=== PATIENT | female | born 2000 | race Caucasian/White ===

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

== ENCOUNTER 2021-03-15 20:03 | Emergency (ER) | payer MEDICAID, SELFPAY ==
[2021-03-15 20:08] VITALS: BP 134/81; PULSE 90; RESP 20; TEMP 36.3; O2SAT 100
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
[2021-03-15] MEDS: Dexamethasone 10 MG/ML VIAL PO (20:35)
--- NOTE | 2021-03-15 20:55 | NUR.NOTE ---
Nursing Note: Patient discharged per provider order. No s/sx of resp. distress noted. Resp. even and non-labored upon discharge. Patient denies any difficulty breathing.
--- NOTE | 2021-03-16 15:52 | NUR.NOTE ---
Nursing Note: Patient called asking about a prescription that was sent to the pharmacy for her. I looked at her discharge instructions and it said to take ibuprofen and acetaminophen with no prescription. I read the information to the patient and she understood. Luisa Ortez
== END 2021-03-15 20:45 | disposition home or self-care (01) ==
PROVIDERS: Emergency Provider Physician Assistant
DX: J03.91 Acute recurrent tonsillitis, unspecified (principal)
CPT/HCPCS: 87880; 99283; 87081; 99282; J1100

== ENCOUNTER 2021-03-29 10:25 | Outpatient (REF) | payer MEDICAID, SELFPAY ==
[2021-04-01 16:08] LABS: Chlamydia Result Negative (Negative); GC Result Negative (Negative)
== END 2021-03-29 10:26 | disposition home or self-care (01) ==
LOC: LBN 10:25
PROVIDERS: Visit Provider Nurse Practitioner Family
DX: Z11.3 Encounter for screening for infections with a predominantly sexual mode of transmission (principal)
CPT/HCPCS: 87491; 87591

== ENCOUNTER 2021-05-11 21:35 | Emergency (ER) | payer MEDICAID, SELFPAY ==
[2021-05-11 21:51] VITALS: BP 113/79; PULSE 94; RESP 16; TEMP 36.4; O2SAT 97
--- NOTE | 2021-05-11 22:15 | RT.EKG_ITS ---
APPROVED REPORT Exam: Resting ECG Reason for Exam: chest pain with inspiration Patient Location: E HR:86 bpm ECG Measurements Heart Rate 86 AXIS ME 131 P 14 QRSd 88 QRS 90 QT 352 T 20 QTc 421 Conclusion Sinus rhythm...normal P axis, V-rate 60- 99 Normal Electrocardiogram
--- NOTE | 2021-05-11 22:15 | DI.RAD_ITS ---
Exam(s) XR PORTABLE CHEST AP EXAM: XR PORTABLE CHEST AP CLINICAL HISTORY: Pain with inspiration TECHNIQUE: 2D digital imaging was performed of the chest. One image was obtained. An AP view was ob tained. COMPARISON: CR XR CERVICAL SP HERNANDES TRAUMA 2-3V from 04/30/2019 FINDINGS: MEDIASTINUM: Normal. HEART: Normal. PULMONARY VASCULATURE: Normal. LUNGS: No focal consolidating infiltrate. There is a nodular opacity measuring 1.8 cm projected with in the right 5th and 6th rib interspace. PLEURAL SPACE: No pleural effusion or pneumothorax. BONE:Within normal limits for the patient's age. OTHER FINDINGS:Normal. IMPRESSION: 1. 1.8 cm round opacity projected within the right 5th and 6th rib interspace. This is nonspecific. Pulmonary nodule or focal infiltrate cannot be excluded. 2. A follow-up examination is recommended. A follow-up chest x-ray is recommended for re-evaluation. If the finding persists a CT scan of the chest is recommended. DATA REPOSITORY: RADIATION DOSE DELIVERED:
[2021-05-11 22:46] VITALS: BP 111/71; PULSE 97; TEMP 36.6; O2SAT 99
--- NOTE | 2021-05-11 22:53 | DI.VRAD_ITS ---
PROCEDURE INFORMATION: Exam: XR Chest Exam date and time: 05/11/2021 10:25 PM Age: 20 years old Clinical indication: Other: Pain with inspiration TECHNIQUE: Imaging protocol: XR of the chest. Views: 1 view. COMPARISON: CR XR CERVICAL SP HERNANDES TRAUMA 2-3V 04/30/2019 11:04 AM FINDINGS: Lungs: Lungs are adequately inflated and symmetric. No focal consolidative airspace disease. Within the right upper lobe partially projecting over the posterior right 6th rib there is asymmetric ovoid 1.8 cm nodular opacity. Pleural spaces: No visible pleural effusion. No pneumothorax. Heart/Mediastinum: Cardiomediastinal contours within normal limits. Bones/joints: No acute osseous finding. IMPRESSION: 1. No focal consolidative airspace disease. 2. Asymmetric ovoid 1.8 cm nodular opacity within the right upper lobe of uncertain etiology. Recommend follow-up with nonemergent CT of the chest. Dictated and Authenticated by: Blaine Santiago MD. Ordering:RENATA Conley MD
[2021-05-11 22:56] LABS: Abs Immature Grans 0.08 10^3/uL (0.0-0.06); Absolute Basophil Count 0.06 10^3/uL (0.0-0.2); Absolute Eosinophil Count 0.21 10^3/uL (0.0-0.7); Basophils % 0.5; Eosinophils % 1.7; HCT 41.3 % (36.0-46.0); HGB 14.1 g/dL (11.2-15.7); Immature Grans % 0.7; Lymphocytes % 16.3; MCHC 34.1 % (32.0-36.0); MPV 9.4 fL (8.0-11.0); Monocytes % 6.5; Neutrophils % 74.3; Nucleated RBC 0 %; Platelet Count 277 10^3/uL (130-400); RBC 4.86 10^6/uL (3.93-5.22); RDW 11.2 % (11.7-14.6); RDW-SD 34.5 fL
[2021-05-11 22:57] LABS: Absolute Neutrophil Count 9.14 10^3/uL (1.2-6.7)
[2021-05-11 23:08] LABS: ALT 21 U/L (14-59); AST 14 U/L (15-37); Alkaline Phosphatase 62 U/L (46-116); BUN 14 mg/dL (7-18); Bilirubin, Total 0.9 mg/dL (0.2-1.0); CREATININE 0.8 mg/dL (0.55-1.02); Calcium 9.1 mg/dL (8.5-10.1); Chloride 103 mmol/L (98-107); Glucose 121 mg/dL (74-106); Potassium 3.4 mmol/L (3.5-5.1); Sodium 140 mmol/L (136-145); Total Protein 7.8 g/dL (6.4-8.2)
[2021-05-11 23:12] LABS: Troponin I < 50 ng/L (<or=60)
--- NOTE | 2021-05-11 23:19 | ED.GENADUL_ITS ---
Discharge Plan Disposition Patient Disposition: HOME Condition: Stable Discharge Details Clinical Impression: URI, acute, Pleurisy Primary Care Provider: Cassie Murphy ED Provider: Jarvis Russell Home Meds and New Rx's Prescriptions: New ibuprofen [IBU] 600 mg tablet 600 mg PO QID PRN (Reason: pain) Qty: 20 RF: 0 Continued medroxyprogesterone [Depo-Provera] 150 mg/mL suspension 150 mg IM Q12W Qty: 1 RF: 4 No Action prednisone 10 mg tablet 30 mg PO BID 5 Days Qty: 30 RF: 0 Discharge Instructions Instructions: Pleurisy (ED), Upper Respiratory Infection (ED) Additional Instructions: Given that we are going to send out testing for COVID you should remain home and quarantine until your results are available which is typically in 24 to 48 hours. If you have any new or significant worsening of symptoms please feel free to return to the emergency department for reevaluation. It is important that you stay well-hydrated and get plenty of rest. Please take medication as prescribed. Given the incidental finding on your chest x-ray you should follow-up with your primary care provider preferably next 1 to 2 weeks for reassessment and further imaging as needed. Stand Alone Forms: PENDING COVID-19 TESTING, Work Release Referrals: Cassie Murphy MD [Primary Care Provider] - 1 week (For reassessment of abnormal chest x-ray) Discharge Data Discharge Date/Time-TO BE ENTERED AT DEPARTURE: 05/11/21 23:54 Medical Decision Making Patient report cold-like symptoms for 2 weeks but then some worsening of the last couple days with nasal congestion, fever, cough. She states pain with deep inspiration specifically around the left clavicle. She does state that she has been in contact with positive coworkers who had COVID recently. Physical exam is unremarkable and pain is not reproducible with palpation. Plan to perform labs including plain film imaging of the chest. Patient is Wells negative but PERC positive due to hormone therapy. Plan to do D-dimer. Review of x-ray imaging and radiologist dictation shows no acute findings but incidental finding that was communicated the patient which I do feel she should follow-up with her primary care provider in regards to. Review of labs is reassuring with no emergent findings noted. Negative troponin, negative D-dimer. EKG was reviewed with attending physician and shows no acute signs of STEMI. see MD charting for full interpretation. Patient does report multiple cases of COVID at work so COVID testing sent and patient instructed on quarantine pending these. At this time I feel that patient has vi ral illness with secondary pleurisy. Patient given any NSAID in the emergency department and instructed on NSAID use to help with symptoms. After discussion of diagnosis and plan of care patient has no further needs, questions, or concerns and states clear understanding to return to the emergency department for any worsening symptoms. Imaging Data Radiologic Study: Imaging: X-Ray Radiologist's impression: No focal consolidative airspace disease. Asymmetric ovoid 1.8 cm nodule opacity within the right upper lobe uncertain etiology. Recommend nonemergent CT chest for follow-up. HPI General Mode of arrival: ambulatory . Date/Time Provider Initiated Documentation: 05/11/21 21:52 . Limitations to Documentation: no limitations . Information obtained by: patient . History of Present Illness 20 year old F presents to the emergency department with the chief complaint of Cold symptoms over the last couple days with inspiration chest pain, described as moderate, Quality is described as aching and sharp, and is localized to the chest. P atient reports no radiation. Patient started experiencing this day(s) (1) and it has been constant. No relieving factors improve symptom(s), No exacerbating factors reported . Patient notes fever/chills, headaches and malaise; denies diaphoresis, shortness of breath, syncope and weakness. Patient did receive the following treatments prior to arrival, none Related Data Home Medications Medication Instructions Recorded Confirmed medroxyprogesterone 150 mg/mL 150 mg IM Q12W #1 ml 04/24/20 08/17/20 intramuscular suspension ibuprofen [IBU] 600 mg PO QID PRN #20 tab 05/11/21 prednisone 10 mg tablet 30 mg PO BID 5 Days #30 tab 05/12/21 Previous Rx's Medication Instructions Recorded medroxyprogesterone 150 mg/mL 150 mg IM Q12W #1 ml 04/24/20 intramuscular suspension ibuprofen [IBU] 600 mg PO QID PRN #20 tab 05/11/21 prednisone 10 mg tablet 30 mg PO BID 5 Days #30 tab 05/12/21 Allergies Allergy/AdvReac Type Severity Reaction Status Date / Time No Known Allergies Allergy Verified 03/29/21 08:21 General Stated Complaint: RespSymp JESUS: 3 Review of Systems Constitutional Constitutional: Reports body ache(s), Reports chills, Reports fever(s), Reports headache(s) and Reports malaise Eyes Eyes: Denies eye discharge ENT Ears, Nose, Mouth, and Throat: Reports as per HPI, Denies ear discharge, Denies otalgia, Reports headache(s), Reports nasal congestion, Denies neck pain, Reports sore throat and Denies throat swelling Cardiovascular Cardiovascular: Denies rapid heart rate, Denies lightheadedness and Denies dyspnea Respiratory Respiratory: Reports as per HPI, Reports cough, Reports pain on inspiration, Denies dyspnea and Denies wheezing Musculoskeletal Musculoskeletal: Denies joint swelling and Denies neck pain Integumentary/Breasts Skin/Breast: Denies rash Neurologic Neurologic: Reports headache(s) Allergic/Immunologic Allergic/Immunologic: Denies throat swelling and Denies wheezing PFSH All Active Problems URI, acute (Acute) Pleurisy (Acute) Recurrent tonsillitis (Chronic) Had eval with ENT- no indication for tonsillectomy at this point (10/27/20) Gastroesophageal reflux disease (Chronic) Encounter for Depo-Provera contraception (Acute) Premature (Chronic) Born at 34 weeks PTSD (post-traumatic stress disorder) (Acute 10/04/14) Anxiety (Chronic 10/04/14) Medical History Anxiety BMI 27.0-27.9,adult PTSD (post-traumatic stress disorder) Family History Mother Substance abuse Alcohol abuse Half-sibling Substance abuse Social History Smoking/Tobacco Use Status: Never Second Hand Exposure: No Smoking risk assessment performed?: Yes Alcohol Intake: current Alcohol Intake frequency: a few times a month Alcohol type: hard liquor Drug use: Never Substance use type: does not use Household members: family Pets and animals: Yes Pets and animals: cat(s) and farm animals Current gender identity: female Seatbelt use: always Helmet use: Yes Helmet use: always Water heater temp set <120 deg: Yes Working smoke detector in home: Yes Fire extinguisher in home: Yes Carbon monox detector in home: Yes Firearms in home: Yes Firearms unloaded and locked: Yes Do you feel safe at home: Yes Do you feel safe in your relationship?: Yes Exam Const General: cooperative, healthy appearing, comfortable, no acute distress, not diaphoretic and not ill appearing Nutritional Appearance: average body habitus Orientation: alert, awake and oriented x3 Limitations: mental status not altered HENMT Head: normal to inspection Ears: hearing grossly normal bilaterally, external ears normal and TM's normal bilaterally General nose exam: external nose normal and nares normal Mouth: oral mucosae normal and tongue normal Throat: posterior oropharynx normal and tonsils normal Neck Neck: normal visual inspection, full ROM, trachea midline, supple and no anterior neck swelling Lymphatic: no lymphadenopathy noted Chest Chest: normal inspection of the chest, normal palpation of entire chest wall, no crepitus and no tenderness Resp Effort & Inspection: normal respiratory effort and able to speak in complete sentences Auscultation: clear to auscultation bilaterally Cardio Rate: regular rate Rhythm: regular rhythm Heart Sounds: S1 normal, S2 normal, no click, no gallops, no murmurs and no rubs Bruits: no abdominal aortic bruits and no carotid bruits Pulses: radial pulses present bilaterally 2+ Skin General skin exam: no rashes or lesions noted Neuro General: patient alert, patient awake, patient oriented x3, tone normal and m oves all extremities Course Vital Signs Vital signs: Vital Signs Temperature 36.4 C L 05/11/21 21:51 Pulse 94 H 05/11/21 21:51 Respiratory Rate 16 05/11/21 21:51 Blood Pressure 113/79 05/11/21 21:51 Pulse Oximetry 97 05/11/21 21:51 Temperature 36.6 C 05/11/21 22:46 Temperature Source Temporal Artery Scan 05/11/21 22:46 Pulse 97 H 05/11/21 22:46 Respiratory Rate 16 05/11/21 21:51 Respiratory Effort Non-Labored 05/11/21 21:57 Respiratory Depth Normal 05/11/21 21:57 Blood Pressure 111/71 05/11/21 22:46 Blood Pressure Position Sitting 05/11/21 21:51 Pulse Oximetry 99 05/11/21 22:46 Oxygen Delivery Method Room Air 05/11/21 21:51 Oxygen Flow Rate 0 05/11/21 21:51 Pain Level 8 05/11/21 21:51 Comment 05/11/21 21:51 Lab/Test Results Lab/Test Results: Laboratory Tests Range/Units 05/11/21 05/11/21 05/11/21 22:43 22:43 22:43 WBC (4.4-10.8) 10^3/uL 12.30 H RBC (3.93-5.22) 10^6/uL 4.86 Hgb (11.2-15.7) g/dL 14.1 Hct (36.0-46.0) % 41.3 MCV (80-95) fL 85.0 MCH (27.0-33.0) pg 29.0 MCHC (32.0-36.0) % 34.1 RDW (11.7-14.6) % 11.2 L Plt Count (130-400) 10^3/uL 277 MPV (8.0-11.0) fL 9.4 Immature Gran % 0.7 Neutrophils % 74.3 Lymphocytes % 16.3 Monocytes % 6.5 Eosinophils % 1.7 Basophils % 0.5 Nucleated RBC % % 0 Absolute Neutrophils (1.2-6.7) 10^3/uL 9.14 H Absolute Lymphocytes (1.2-3.4) 10^3/uL 2.00 Absolute Monocytes (0.1-0.8) 10^3/uL 0.80 Absolute Eosinophils (0.0-0.7) 10^3/uL 0.21 Absolute Basophils (0.0-0.2) 10^3/uL 0.06 Sodium (136-145) mmol/L 140 Potassium (3.5-5.1) mmol/L 3.4 L Chloride (98-107) mmol/L 103 Carbon Dioxide (21.0-32.0) mmol/L 25.0 Anion Gap (3-11) mmol/L 12.0 H BUN (7-18) mg/dL 14 Creatinine (0.55-1.02) mg/dL 0.8 Estimated GFR/1.73 m2 (mL/min/1.73m2) >= 60.00 Glucose (74-106) mg/dL 121 H Calcium (8.5-10.1) mg/dL 9.1 Total Bilirubin (0.2-1.0) mg/dL 0.9 AST (15-37) U/L 14 L ALT (14-59) U/L 21 Alkaline Phosphatase (46-116) U/L 62 Troponin I (<or=60) ng/L < 50 Total Protein (6.4-8.2) g/dL 7.8 Albumin (3.4-5.0) g/dL 4.0 PAWSS Have you Been Recently Intoxicated or Drunk Within the Last 30 days?: No Have you Ever Experienced Previous Episodes of Alcohol Withdrawal?: No Have you ever Experienced Withdrawal Seizures?: No Have you ever Experienced Delirium Tremens(DT)s?: No Have you ever undergone Alcohol Rehabilitation Treatment (i.e, inpt ot outpatient treatment programs)?: No Have you ever Experienced Blackouts?: No Have you ever Combined Alcohol with other Downers within the last 90 days?: No Have you ever Combined Alcohol with any other Substance of Abuse during the last 90 days?: No Positive Blood Alcohol level on Presentation? [PCS.BAL]: No Evidence of Increased Autonomic Activity (i.e. HR>120, tremor, sweating, agitation, nausea)?: No Result: 0
[2021-05-11 23:23] LABS: D-Dimer 309 ng/mlFEU (<500)
[2021-05-11] MEDS: Ibuprofen 600 MG TAB PO (23:39)
[2021-05-12 00:06] VITALS: BP 111/71; PULSE 97; RESP 16; TEMP 36.6; O2SAT 99
--- NOTE | 2021-05-13 09:06 | NUR.NOTE ---
pt called for covid results. told results are still pending.Nursing Note:
[2021-05-13 15:26] LABS: COVID-19 RT-PCR UVMMC Result Negative (Negative)
== END 2021-05-11 23:54 | disposition home or self-care (01) ==
PROVIDERS: Emergency Provider Nurse Practitioner Family
DX: J06.9 Acute upper respiratory infection, unspecified (principal); R09.1 Pleurisy; Z20.822 Contact with and (suspected) exposure to COVID-19; R07.1 Chest pain on breathing
CPT/HCPCS: 80053; 93005; 99283; 99284; U0003; 71045; 84484; 85025; 85379; 93010

== ENCOUNTER 2021-05-28 02:01 | Outpatient (CLI) | payer MEDICAID, SELFPAY ==
--- NOTE | 2021-05-28 08:07 | DI.RAD_ITS ---
Exam(s) XR CHEST 2V PA LATERAL EXAM: XR CHEST 2V PA LATERAL CLINICAL HISTORY: 20yF with incidental nodule on CXR in ED,f/u cxr. TECHNIQUE: 2D digital imaging was performed. COMPARISON: CR,XR XR PORTABLE CHEST AP from 05/11/2021 FINDINGS: Heart size is normal. The mediastinum is not widened. The previously described nodular infiltrate in the right upper lobe is significantly less dense on th e present study and appears to have mostly resolved, indicating that was probably of infectious origi n. No other infiltrates evident. No pleural effusions. IMPRESSION: Decrease in size-appearance of the previously described nodular infiltrate in the right upper lobe. This is not completely resolved. Recommend repeat chest x-ray in 2 weeks, earlier if clinically ross cated. DATA REPOSITORY: RADIATION DOSE DELIVERED:
== END 2021-05-28 02:21 ==
DX: R91.8 Other nonspecific abnormal finding of lung field (principal); R93.89 Abnormal findings on diagnostic imaging of other specified body structures
CPT/HCPCS: 71046

== ENCOUNTER 2021-07-19 02:01 | Outpatient (CLI) | payer MEDICAID, SELFPAY ==
--- NOTE | 2021-07-19 07:00 | DI.RAD_ITS ---
Exam(s) XR CHEST 2V PA LATERAL EXAM: XR CHEST 2V PA LATERAL CLINICAL HISTORY: ? Resolution of RUL infiltrate,R93.89 TECHNIQUE: 2D digital imaging was performed. COMPARISON: CR,XR XR PORTABLE CHEST AP from 05/11/2021 CR XR CHEST 2V PA LATERAL from 05/28/2021 FINDINGS: MEDIASTINUM: Normal. HEART: Normal. PULMONARY VASCULATURE: Normal. LUNGS: Clear. Previously noted nodule debt nodular density right upper lobe has resolved. No new fi ndings. PLEURAL SPACE: No pleural effusion or pneumothorax. BONE:Unremarkable for age. IMPRESSION: Resolution of previously noted right upper lobe infiltrate. No new abnormalities. DATA REPOSITORY: RADIATION DOSE DELIVERED:
== END 2021-07-19 02:21 ==
DX: R93.89 Abnormal findings on diagnostic imaging of other specified body structures (principal)
CPT/HCPCS: 71046

== ENCOUNTER 2022-02-07 19:16 | Emergency (ER) | payer MEDICAID, SELFPAY ==
[2022-02-07 19:25] VITALS: BP 113/68; PULSE 92; RESP 18; TEMP 36.7; O2SAT 98
--- NOTE | 2022-02-07 19:30 | RT.EKG_ITS ---
APPROVED REPORT Exam: Resting ECG Reason for Exam: Chest Pain Patient Location: E HR:86 bpm ECG Measurements Heart Rate 86 AXIS MD 136 P 11 QRSd 85 QRS 84 QT 361 T 1 QTc 433 Conclusion Sinus rhythm...normal P axis, V-rate 60- 99
[2022-02-07] MEDS: Normal Saline 500 ML IV (20:33)
[2022-02-07] MEDS: Ketorolac 15 MG/ML VIAL IVP (20:33)
[2022-02-07 20:36] LABS: Abs Immature Grans 0.03 10^3/uL (0.0-0.06); Absolute Basophil Count 0.06 10^3/uL (0.0-0.2); Absolute Eosinophil Count 0.11 10^3/uL (0.0-0.7); Absolute Lymphocyte Count 2.91 10^3/uL (1.2-3.4); Absolute Monocyte Count 0.59 10^3/uL (0.1-0.8); Absolute Neutrophil Count 5.76 10^3/uL (1.2-6.7); Basophils % 0.6; Eosinophils % 1.2; HGB 14.7 g/dL (11.2-15.7); Immature Grans % 0.3; Lymphocytes % 30.8; MCH 29.2 pg (27.0-33.0); MCHC 34.2 % (32.0-36.0); MCV 85 fL (80-95); MPV 9.4 fL (8.0-11.0); Monocytes % 6.2; Neutrophils % 60.9; Platelet Count 271 10^3/uL (130-400); RBC 5.04 10^6/uL (3.93-5.22); RDW 11.9 % (11.7-14.6); RDW-SD 36.6 fL; WBC 9.46 10^3/uL (4.4-10.8)
--- NOTE | 2022-02-07 20:36 | W.ED.GENAD ---
Discharge Plan Disposition Patient Disposition: HOME Condition: Good Discharge Details Clinical Impression: Precordial catch syndrome Primary Care Provider: Unknown,Unknown ED Provider: Howard Amaro Home Meds and New Rx's Prescriptions: No Action medroxyprogesterone [Depo-Provera] 150 mg/mL suspension 150 mg IM Q12W Qty: 1 4RF ibuprofen [IBU] 600 mg tablet 600 mg PO QID PRN (Reason: pain) Qty: 20 0RF Discharge Instructions Instructions: Chest Pain (ED) Additional Instructions: At this time your symptoms do not show any signs of heart attack or blood clot. There is no evidence of popped lung or fluid around your heart on the ultrasound. Please take Tylenol and Motrin, stay well-hydrated, and monitor your symptoms closely. If you notice any worsening of your symptoms, or any new symptoms such as vomiting, diarrhea, fever, chills, shortness of breath, chest pain, numbness, weakness, or fainting , please return immediately to the emergency department for reevaluation. Please follow up with your primary care provider as soon as possible for reassessment and reevaluation. As always, it was a pleasure participating in your medical care today. Stand Alone Forms: Work Release Referrals: Darlyn Cannon [NURSE PRACTITIONER] - Medical Decision Making 21-year-old female with no significant past medical history who was adopted, who does take medroxyprogesterone for control presents today for chest pain. Patient states that over the last 6 to 7 months she has had intermittent sudden stabbing type pain that occurs in her left chest. It would only last 3 to 5 minutes. It seems to come on more frequently with activity, but it is not worsened with exertion when it is happening. She states it does take her breath away. She does not smoke. She does not vape. She denies any arm neck or shoulder or jaw pain when this occurs. Immediately after it resolves she has no pain or no prolonged symptoms whatsoever. Denies PE risk factors such as recent long car rides, immobilization, recent surgery, prior history of DVT or PE, family history of PE or DVT, morbid obesity, and smoking, hemoptysis, history of cancer. She has no other complaints at this time. No cough, fever, chills, vomiting, diarrhea. Exam demonstrates well-appearing female, lungs are clear, vitals are stable. No evidence of abnormality on physical exam. Differential is highest for precordial catch syndrome, however pleurisy, and PE are less likely but on the differential. Musculoskeletal component also potential etiology. We will evaluate for these. EKG was interpreted by Dr. Morris, and on both his review and my own there is no evidence of STEMI or significant abnormality. Small Q waves are noted in lead III. However there is no evidence of S1Q3T3 otherwise. 10:40 PM Patient's laboratory work-up has returned and is unremarkable. D-dimer normal, troponin normal, lipase normal. Bedside ultrasound was performed, there is good lung sliding, no pericardial effusion. No evidence of wall motion abnormality noted on limited ultrasound. Patient feels well and she remains pain-free. Symptoms inconsistent with dissection or PE. Symptoms inconsistent with ACS. Chief diagnosis is for precordial catch syndrome or mild pleurisy. Patient stable for discharge with close follow-up. Recommend NSAIDs at home if needed, hydration, and close follow-up. I have extensively reviewed the treatment plan and discharge instructions with the patient and their family. I have addressed all patient concerns at this time. The patient and family was made aware of what symptoms to monitor for that would warrant a return to the emergency department. Discussed the plan with the patient and family, they demonstrate verbal understanding and agreement with our assessment and plan at this time. The documentation in this chart was dictated using [employer] dictation software. Please excuse any dictation errors. HPI General Date/Time Provider Initiated Documentation: 02/07/22 19:48. HPI Narrative: 21-year-old female with no significant past medical history who was adopted, who does take medroxyprogesterone for control presents today for chest pain. Patient states that over the last 6 to 7 months she has had intermittent sudden stabbing type pain that occurs in her left chest. It would only last 3 to 5 minutes. It seems to come on more frequently with activity, but it is not worsened with exertion when it is happening. She states it does take her breath away. She does not smoke. She does not vape. She denies any arm neck or shoulder or jaw pain when this occurs. Immediately after it resolves she has no pain or no prolonged symptoms whatsoever. Denies PE risk factors such as recent long car rides, immobilization, recent surgery, prior history of DVT or PE, family history of PE or DVT, morbid obesity, and smoking, hemoptysis, history of cancer. She has no other complaints at this time. No cough, fever, chills, vomiting, diarrhea. Related Data Home Medications Medication Instructions Recorded Confirmed ibuprofen 600 mg tablet (IBU) 600 mg PO QID PRN pain #20 tabs 05/11/21 02/07/22 medroxyprogesterone 150 mg/mL 150 mg IM Q12W #1 mL 12/17/21 02/07/22 intramuscular suspension (Depo-Provera) Previous Rx's Medication Instructions Recorded ibuprofen 600 mg tablet (IBU) 600 mg PO QID PRN pain #20 tabs 05/11/21 medroxyprogesterone 150 mg/mL 150 mg IM Q12W #1 mL 12/17/21 intramuscular suspension (Depo-Provera) Allergies Allergy/AdvReac Type Severity Reaction Status Date / Time No Known Allergies Allergy Verified 02/07/22 19:30 General Stated Complaint: Chest/Rib JESUS: 3 Review of Systems All systems reviewed & are unremarkable except as noted in HPI and below PFSH All Active Problems (Updated 02/07/22 @ 22:00 by Howard Amaro DO) Precordial catch syndrome (Acute) Insomnia (Chronic) Heel pain (Chronic) Anxiety (Chronic) Gastroesophageal reflux disease (Chronic) Medical History Abnormal chest xray nodule resolved BMI 27.0-27.9,adult Fracture of distal phalanx of left thumb (01/10/19) 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 PTSD (post-traumatic stress disorder) Recurrent tonsillitis Had eval with ENT- no indication for tonsillectomy at this point (10/27/20) Family History Mother Substance abuse Alcohol abuse Half-sibling Substance abuse Social History Smoking/Tobacco Use Status: Never Second Hand Exposure: No Smoking risk assessment performed?: Yes Alcohol Intake: current Alcohol Intake frequency: a few times a month Alcohol type: hard liquor Drug use: Never Substance use type: does not use Household members: family Pets and animals: Yes Pets and animals: cat(s) and farm animals Current gender identity: female Seatbelt use: always Helmet use: Yes Helmet use: always Water heater temp set <120 deg: Yes Working smoke detector in home: Yes Fire extinguisher in home: Yes Carbon monox detector in home: Yes Firearms in home: Yes Firearms unloaded and locked: Yes Do you feel safe at home: Yes Do you feel safe in your relationship?: Yes Exam Narrative Exam Narrative: 1.Const: Well-nourished, Well-developed, appearing stated age 2.Eyes: PERRL, no conjunctival injection, and symmetrical lids. 3.ENT: Atraumatic external nose and ears. Moist MM. Neck: Symmetric, trachea midline, No thyromegaly. 4.CVS: +S1/S2, No murmurs or gallops. Peripheral pulses 2+ and equal in all extremities. Brisk capillary refill in all extremities. 5.RESP: Unlabored respiratory effort. Clear to auscultation bilaterally. No wheezes rales or rhonchi 6.GI: Soft, Nontender/Nondistended, No hepatosplenomegaly. No guarding or rebound. 7.MSK: Normocephalic/Atraumatic, Extremities w/o deformity or ttp No cyanosis or clubbing, Normal movement of all extremities, no calf tenderness 8.Skin: Warm, Dry. No rashes or lesions. 9.Neuro: perch mender II-XII grossly intact. Sensation grossly intact, no focal neurologic deficits. 10.Psych: (AAO) x3. Appropriate mood and affect Course Vital Signs Vital signs: Vital Signs Temperature 36.7 C 02/07/22 19:25 Pulse 92 H 02/07/22 19:25 Respiratory Rate 18 02/07/22 19:25 Blood Pressure 113/68 02/07/22 19:25 Pulse Oximetry 98 02/07/22 19:25 Temperature 36.7 C 02/07/22 19:25 Pulse 92 H 02/07/22 19:25 Respiratory Rate 18 02/07/22 19:25 Respiratory Effort Non-Labored 02/07/22 19:28 Respiratory Depth Normal 02/07/22 19:28 Respiratory Pattern Normal 02/07/22 19:28 Blood Pressure 113/68 02/07/22 19:25 Blood Pressure Position Sitting 10/20/22 19:25 Pulse Oximetry 98 02/07/22 19:25 Oxygen Delivery Method Room Air 02/07/22 19:25 Oxygen Flow Rate 0 02/07/22 19:25 Pain Level 0 02/07/22 19:28 Lab/Test Results Lab/Test Results: POC- Test(urine) Negative POCUS Exam (ED) Limited Cardiac Exam DATE OF EXAM: 02/07/22 TIME OF EXAM: 22:44 PROVIDER THAT PERFORMED THE STUDY: Howard Amaro IS THIS A REPEAT EXAM DURING THIS ENCOUNTER: no REASON FOR EXAM: Chest pain VISUALIZED STRUCTURES: Left atrium, Left ventricle, Right ventricle and Interventricular septum VIEW OBTAINED: Parasternal long-axis PERTINENT FINDINGS/IMPRESSION: No apparent abnormalities; no IVC inspiratory collapsability, No LV dysfunction, No pericardial effusion, No plethoric IVC, No RV dilation and No RV dysfunction Exam complete
[2022-02-07 20:55] LABS: ALT 29 U/L (14-59); AST 15 U/L (15-37); Albumin 4.6 g/dL (3.4-5.0); Alkaline Phosphatase 54 U/L (46-116); Anion Gap 12.5 mmol/L (3-11); BUN 13 mg/dL (7-18); Bilirubin, Total 1.2 mg/dL (0.2-1.0); CO2 25.5 mmol/L (21.0-32.0); Calcium 9.5 mg/dL (8.5-10.1); Chloride 105 mmol/L (98-107); Estimated GFR 82.71 (mL/min/1.73m2); Glucose 98 mg/dL (74-106); Lipase 78 U/L (73-393); Potassium 3.7 mmol/L (3.5-5.1); Sodium 143 mmol/L (136-145); Total Protein 8.4 g/dL (6.4-8.2); Troponin I < 50 ng/L (<or=60)
[2022-02-07 21:13] LABS: D-Dimer 133 ng/mlFEU (<500)
== END 2022-02-07 22:10 | disposition home or self-care (01) ==
PROVIDERS: Emergency Provider Student in an Organized Health Care Education/Training Program
DX: R07.2 Precordial pain (principal)
CPT/HCPCS: 80053; 81025; 83690; 93005; 93308; 96361; 96374; 99284; 84484; 85025; 85379; 93010; J1885

== ENCOUNTER 2022-04-08 20:07 | Emergency (ER) | payer MEDICAID, SELFPAY ==
[2022-04-08 20:13] VITALS: BP 111/76; PULSE 96; RESP 16; TEMP 36.8; O2SAT 99
[2022-04-08 20:33] LABS: Bilirubin Negative (Negative); Blood Large (Negative); Clarity Cloudy (Clear); Glucose Negative (Negative); Ketones Negative (Negative); Leukocyte Esterase Small (Negative); Nitrite Negative (Negative); Specific Gravity >= 1.030 (1.005-1.025); Urobilinogen 0.2 EU/dL (Up TO 0.2)
[2022-04-08 20:44] LABS: Bacteria Few HPF (Negative); C & S Indicated? Yes; Casts Negative LPF (Negative); Crystals Negative HPF (Negative); Epithelial Cells Few HPF (Negative); Mucus Negative (Negative); RBC 20-50 HPF (0-2)
--- NOTE | 2022-04-08 20:46 | W.ED.GENAD ---
Discharge Plan Disposition Patient Disposition: Home Condition: Stable Discharge Details Clinical Impression: UTI (urinary tract infection) Primary Care Provider: Darlyn Cannon ED Provider: Kelvin Munoz Home Meds and New Rx's Prescriptions: New sulfamethoxazole-trimethoprim [Bactrim DS] 800-160 mg tablet 1 tab PO BID Qty: 14 0RF Continued medroxyprogesterone [Depo-Provera] 150 mg/mL suspension 150 mg IM Q12W Qty: 1 4RF ibuprofen [IBU] 600 mg tablet 600 mg PO QID PRN (Reason: pain) Qty: 20 0RF Discharge Instructions Instructions: Urinary Tract Infection in Women (ED) Additional Instructions: Bactrim as directed. Plenty of fluids to avoid dehydration. Qboh-sva-flnwrsu Azo as directed for symptomatic control. Please watch for new or worsening symptoms and return to the ER for any concerns. Lastly, please follow-up with your PCP in the next 3-5 days if symptoms not improving Medical Decision Making 21-year-old female presents for concern of UTI like symptoms over the past couple of hours. Clinically she appears well, nontoxic. No risk of STD. Plan to obtain urinalysis and negative urinalysis reveals large blood, negative nitrate. Small leuk esterase, 20-50 red cells 10-20 white cells, culture indicated. Will treat with Bactrim and Pyridium. Standard discharge and return precautions were provided. Patient understands, is agreeable to this plan, and has no additional questions or concerns upon discharge. This documentation was generated using [employer] dictation system, please disregard any oddities of phrase or misspellings. Medical Records Medical records reviewed: Yes I reviewed the patient's medical records. Lab Data Lab results reviewed: Yes I reviewed the patient's lab results. Labs: 04/08/22 20:28 Urine - Reflex from Ua Urine Culture - Pending Laboratory Tests Range/Units 04/08/22 20:28 Urine Color (Yellow) Yellow Urine Clarity (Clear) Cloudy Urine pH (5-8) 6.0 Ur Specific [place] (1.005-1.025) >= 1.030 H Urine Protein (Negative) mg/dL 30 H Urine Ketones (Negative) mg/dL Negative Urine Blood (Negative) Large H Urine Nitrite (Negative) Negative Urine Bilirubin (Negative) Negative Urine Urobilinogen (Up TO 0.2) EU/dL 0.2 Ur Leukocyte Esterase (Negative) Small H Urine RBC (0-2) HPF 20-50 H Urine WBC (0-5) HPF 10-20 H Ur Epithelial Cells (Negative) HPF Few Urine Crystals (Negative) HPF Negative Urine Bacteria (Negative) HPF Few Urine Casts (Negative) LPF Negative Urine Mucus (Negative) Negative Ur Culture Indicated? Yes Urine Glucose (Negative) mg/dL Negative HPI General Mode of arrival: ambulatory. Date/Time Provider Initiated Documentation: 04/08/22 20:18. Limitations to Documentation: no limitations. Information obtained by: patient. HPI Narrative: 21-year-old female presents with 3-hour history of UTI-like symptoms, dysuria, hematuria, urinary frequency. Reports she had a UTI in the past and this feels similarly. Denies fever, abdominal pain, nausea vomiting or back pain, vaginal bleeding or discharge. No risk for STD. Related Data Home Medications Medication Instructions Recorded Confirmed ibuprofen 600 mg tablet (IBU) 600 mg PO QID PRN pain #20 tabs 05/11/21 03/04/22 medroxyprogesterone 150 mg/mL 150 mg IM Q12W #1 mL 12/17/21 03/04/22 intramuscular suspension (Depo-Provera) sulfamethoxazole 800 1 tab PO BID #14 tabs 04/08/22 mg-trimethoprim 160 mg tablet (Bactrim DS) Previous Rx's Medication Instructions Recorded ibuprofen 600 mg tablet (IBU) 600 mg PO QID PRN pain #20 tabs 05/11/21 medroxyprogesterone 150 mg/mL 150 mg IM Q12W #1 mL 12/17/21 intramuscular suspension (Depo-Provera) sulfamethoxazole 800 1 tab PO BID #14 tabs 04/08/22 mg-trimethoprim 160 mg tablet (Bactrim DS) Allergies Allergy/AdvReac Type Severity Reaction Status Date / Time No Known Allergies Allergy Verified 03/04/22 10:51 General Stated Complaint: Urinary JESUS: 4 Review of Systems Constitutional Constitutional: Denies fever(s) Gastrointestinal Gastrointestinal: Denies abdominal pain, Denies nausea and Denies vomiting Genitourinary Genitourinary: Denies abnormal vaginal bleeding, Reports hematuria, Reports dysuria and Denies vaginal discharge Musculoskeletal Musculoskeletal: Denies back pain Integumentary/Breasts Skin/Breast: Denies rash PFSH All Active Problems UTI (urinary tract infection) (Acute) Insomnia (Chronic) Heel pain (Chronic) Anxiety (Chronic) Gastroesophageal reflux disease (Chronic) Medical History Abnormal chest xray nodule resolved BMI 27.0-27.9,adult Fracture of distal phalanx of left thumb (01/10/19) 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 PTSD (post-traumatic stress disorder) Recurrent tonsillitis Had eval with ENT- no indication for tonsillectomy at this point (10/27/20) Family History Mother Substance abuse Alcohol abuse Half-sibling Substance abuse Social History Smoking/Tobacco Use Status: Never Second Hand Exposure: No Smoking risk assessment performed?: Yes Alcohol Intake: current Alcohol Intake frequency: a few times a month Alcohol type: hard liquor Drug use: Never Substance use type: does not use Household members: family Pets and animals: Yes Pets and animals: cat(s) and farm animals Current gender identity: female Seatbelt use: always Helmet use: Yes Helmet use: always Water heater temp set <120 deg: Yes Working smoke detector in home: Yes Fire extinguisher in home: Yes Carbon monox detector in home: Yes Firearms in home: Yes Firearms unloaded and locked: Yes Do you feel safe at home: Yes Do you feel safe in your relationship?: Yes Exam Const General: cooperative, healthy appearing, comfortable and no acute distress Orientation: alert and awake [facility] Head: normal to inspection, normocephalic and atraumatic Eyes Conjunctivae: conjunctivae normal Neck Neck: normal visual inspection, full ROM, trachea midline and supple Resp Effort & Inspection: normal respiratory effort and able to speak in complete sentences Auscultation: clear to auscultation bilaterally Cardio Rate: regular rate Rhythm: regular rhythm GI Palpation: soft, not firm, no guarding and nontender Back/Spine/Pelvis Back: no CVA tenderness and No back tenderness Skin General skin exam: no rashes or lesions noted Neuro General: patient alert, patient awake, moves all extremities and no focal motor deficits Cognition: normal cognition Speech: speech normal Gait: normal gait Sensory Exam: no sensory deficits noted Psych Appearance: grossly normal Mental Status: mental status grossly normal Course Vital Signs Vital signs: Vital Signs Temperature 36.8 C 04/08/22 20:13 Pulse 96 H 04/08/22 20:13 Respiratory Rate 16 04/08/22 20:13 Blood Pressure 111/76 04/08/22 20:13 Pulse Oximetry 99 04/08/22 20:13 Temperature 36.8 C 04/08/22 20:13 Temperature Source Oral 04/08/22 20:13 Pulse 96 H 04/08/22 20:13 Respiratory Rate 16 04/08/22 20:13 Respiratory Effort 04/08/22 20:16 Blood Pressure 111/76 04/08/22 20:13 Blood Pressure Position Sitting 04/08/22 20:13 Pulse Oximetry 99 04/08/22 20:13 Oxygen Delivery Method Room Air 04/08/22 20:13 Oxygen Flow Rate 0 04/08/22 20:13 Pain Level 7 04/08/22 20:13 Lab/Test Results Lab/Test Results: 04/08/22 20:28 Urine - Reflex from Ua Urine Culture - Pending Laboratory Tests Range/Units 04/08/22 20:28 Urine Color (Yellow) Yellow Urine Clarity (Clear) Cloudy Urine pH (5-8) 6.0 Ur Specific [place] (1.005-1.025) >= 1.030 H Urine Protein (Negative) mg/dL 30 H Urine Ketones (Negative) mg/dL Negative Urine Blood (Negative) Large H Urine Nitrite (Negative) Negative Urine Bilirubin (Negative) Negative Urine Urobilinogen (Up TO 0.2) EU/dL 0.2 Ur Leukocyte Esterase (Negative) Small H Urine RBC (0-2) HPF 20-50 H Urine WBC (0-5) HPF 10-20 H Ur Epithelial Cells (Negative) HPF Few Urine Crystals (Negative) HPF Negative Urine Bacteria (Negative) HPF Few Urine Casts (Negative) LPF Negative Urine Mucus (Negative) Negative Ur Culture Indicated? Yes Urine Glucose (Negative) mg/dL Negative POC- Test(urine) Negative
== END 2022-04-08 20:59 | disposition home or self-care (01) ==
PROVIDERS: Emergency Provider Physician Assistant; PCP Nurse Practitioner Family
DX: N39.0 Urinary tract infection, site not specified (principal); B96.20 Unspecified Escherichia coli [E. coli] as the cause of diseases classified elsewhere
CPT/HCPCS: 81025; 87077; 99283; 81003; 81015; 87086; 87186

== ENCOUNTER 2022-05-18 17:08 | Outpatient (REF) | payer MEDICAID, SELFPAY ==
[2022-05-20 13:22] LABS: COVID-19 RT-PCR UVMMC Result Negative (Negative)
== END 2022-05-18 17:09 | disposition home or self-care (01) ==
LOC: LBN 17:08
PROVIDERS: PCP Nurse Practitioner Family; Visit Provider Physician Assistant Medical
DX: Z20.822 Contact with and (suspected) exposure to COVID-19 (principal); J02.9 Acute pharyngitis, unspecified
CPT/HCPCS: U0003; 87081

== ENCOUNTER 2022-05-23 12:48 | Outpatient (CLI) | payer MEDICAID, SELFPAY | END 2022-05-23 12:49 | disposition home or self-care (01) | LOC: CARDOPNVT 12:48 | PROVIDERS: PCP Nurse Practitioner Family; Visit Provider Family Medicine | DX: R07.9 Chest pain, unspecified (principal) | CPT/HCPCS: 93246 ==

== ENCOUNTER 2022-06-20 09:58 | Outpatient (CLI) | payer MEDICAID, SELFPAY ==
--- NOTE | 2022-06-21 09:18 | CER_ITS ---
Date of service: 06/21/22 Time of Service: 09:18 Cardiac Event Recorder Referring Provider:: Jerod Lopez Indications:: Chest pain Cardiac Event Note: This is a 14-day compliance monitor reportedly ordered for chest pain Rhythm throughout was sinus with an average heart rate of 89. Minimum was 50, maximum 180 There were no ventricular dysrhythmias A total of 7 isolated atrial premature beats were seen There was no atrial fibrillation, no SVT, no high-grade block, no pauses greater than 3 seconds No patient symptoms were reported
== END 2022-06-20 09:59 | disposition home or self-care (01) ==
LOC: CARDOPNVT 09:58
PROVIDERS: PCP Nurse Practitioner Family; Visit Provider Internal Medicine Cardiovascular Disease
DX: R07.9 Chest pain, unspecified (principal)

== ENCOUNTER 2022-10-28 09:02 | Day surgery (SDC) | payer MEDICAID, SELFPAY ==
[2022-10-28] VITALS (9 sets, daily range): BP systolic 101–122; BP diastolic 60–83; PULSE 74–95; RESP 16–22; TEMP 36.3–36.8; O2SAT 98–100; BMI 30.4
[2022-10-28] MEDS: Lactated Ringers 1,000 ML 80 ML IV (09:50)
--- NOTE | 2022-10-28 09:59 | ANES.PREOP_ITS ---
General Info Date of Service Date Performed: 10/28/22 Height: 5 ft 1 in Weight: 73 kg Body Mass Index (BMI): 30.4 Surgical Procedure: Operation Date: 10/28/22 11:10 Proposed Procedure Side Surgeon p Tonsillectomy & Possible Adenoidectomy Bilateral Michael Cuellar MD Meds Allergies and Home Medications Allergies Allergy/AdvReac Type Severity Reaction Status Date / Time No Known Allergies Allergy Verified 10/28/22 09:38 Home Medication Medication Instructions Recorded ibuprofen 600 mg tablet (IBU) 600 mg PO QID PRN pain #20 tabs 05/11/21 medroxyprogesterone 150 mg/mL 150 mg IM Q12W #1 mL 08/15/22 intramuscular suspension (Depo-Provera) Current Visit Medications: Current Medications Generic Name Dose Route Start Last Admin Trade Name Freq PRN Reason Stop Dose Admin Ringer's Solution 1,000 mls @ 80 mls/hr 10/28/22 06:00 10/28/22 09:50 IV 11/24/22 23:59 80 mls/hr INFUSION IZABEL Administration Cefazolin Sodium/Dextrose 2 gm in 50 mls @ 100 mls/hr 10/28/22 06:00 Ancef Duplex IVPB 11/24/22 23:59 PREOP IZABEL Tranexamic Acid 1,000 mg/ 60 mls @ 360 mls/hr 10/28/22 06:00 Sodium Chloride IVPB 10/28/22 18:00 PREOP IZABEL IV Miscellaneous Supplies 1 each 10/28/22 06:00 Iv Access IV 11/24/22 23:59 DIRECTED IZABEL Sodium Chloride 0 ml 10/28/22 06:00 Normal Saline Flush 10 Ml Syr IV 11/24/22 23:59 PRN PRN Sodium Chloride 0 ml 10/28/22 06:00 Normal Saline 10 Ml Vial IJ 11/24/22 23:59 DIRECTED PRN Sterile Water 0 ml 10/28/22 06:00 Water,Injection,Sterile 10 Ml Vial IJ 11/24/22 23:59 DIRECTED PRN PFSH Active Problems Active Problems: Problem Status Onset Code Anxiety Gastroesophageal reflux disease K21.9 Heel pain M79.673 Insomnia G47.00 Chronic tonsillitis J35.01 Medical History Medical History Abnormal chest xray nodule resolved BMI 27.0-27.9,adult Fracture of distal phalanx of left thumb (01/10/19) 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 states nothing is a trigger at this time Recurrent tonsillitis Had eval with ENT- no indication for tonsillectomy at this point (10/27/20) Tobacco Smoking/Tobacco Use Status: Never Second hand exposure: No Alcohol Alcohol Intake: current Alcohol intake frequency: a few times a month Alcohol ty pe: hard liquor Substance Use Substance use: Never Substance use type: does not use Vital Signs and Lab Results Vital Signs Most Recent Vital Signs in EMR: Most Recent Vital Signs Temp Pulse Resp BP Pulse Ox 36.8 C 91 H 18 120/79 98 10/28/22 09:39 10/28/22 09:39 10/28/22 09:39 10/28/22 09:39 10/28/22 09:39 Point of Care Results Point of Care Results: POC- Test(urine) Negative 10/28/22 09:46 Lab Results Blood Type / Crossmatch: No Data to Display Complete Blood Count: No Data to Display Complete Metabolic Panel: No Data to Display Liver Function Panel: No Data to Display Coagulation Panel: No Data to Display Cardiac Panel: No Data to Display Arterial Blood Gas: No Data to Display Venous Blood Gas: No Data to Display Pancreas Panel: No Data to Display Thyroid Panel: No Data to Display Infectious Disease: No Data to Display Blood Cultures: No Data to Display Toxicology Panel: No Data to Display Panel: No Data to Display Imaging and Studies Imaging and Studies Study information below may be from another EMR and interpreted by another provider. Please see original notes in EMR for more complete details. EKG Summary: EKG PATIENT NAME: Kayla Hanna #: [id number] ORDERING PROVIDER: Ryan Virk M.D. PRIMARY CARE PROVIDER:UNKNOWN,UNKNOWN DATE/TIME OF SERVICE: 02/07/221939 : 2001PERFORMING LOCATION: ER APPROVED REPORT Exam: Resting ECG Reason for Exam: Chest Pain Patient Location: E HR:86 bpm ECG Measurements Heart Rate 86 AXIS GA 136 P 11 QRSd 85 QRS 84 QT 361 T1 QTc 433 Conclusion Sinus rhythm...normal P axis, V-rate 60- 99 <Electronically signed by RYAN VIRK MD in [place]> E-Sign Date: 02/07/22 E-Sign Time: 1942 ADDENDUM APPROVED REPORT Exam: Resting ECG Reason for Exam: Chest Pain Patient Location: E HR:86 bpm ECG Measurements Heart Rate 86 AXIS GA 136 P 11 QRSd 85 QRS 84 QT 361 T1 QTc 433 Conclusion Sinus rhythm...normal P axis, V-rate 60- 99 I have reviewed and I agree with the emergency room physician's ECG interpretation. Electronically signed by: <Electronically signed by Rona Cox M.D. in [place]> 02/11/22 0828 Cosigned by: Anesthesia Assessment and Plan Anesthesia History Personal History: No History of Anesthesia Complications Family History: Family History Unknown Exercise Tolerance Exercise Tolerance: Metabolic Equivalents>4 Pertinent Negatives Pertinent Negatives: No Symptoms of GERD, No Major Cardiovascular Symptoms or Complaints, No Major Pulmonary Symptoms or Complaints and No History of CVA/TIA Cardiac & Pulmonary Exam Cardiac Exam: Normal S1/S2 Heart Sounds Pulmonary Exam: Clear Bilateral Breath Sounds Implantable Cardiac Device Does patient have a Pacemaker or an ICD?: No Airway Exam Known Difficult Airway: No Mallampati Class: 2 Mouth Opening: Normal (> 3cm) Thyromental Distance: Greater than 3 cm Neck Range of Motion: Full ROM Neck Circumference: Normal Teeth Condition: Normal Dentition ASA Classification ASA Score: ASA 2 Emergency Case?: No NPO Status NPO Status: NPO Clears >2 hours, Solids >8 hours Status Status: Negative HCG Anesthesia Plan Resuscitation Status: Full Code Anesthesia Technique: General Anesthesia Airway Planned: Endotracheal Tube Monitors Used: Standard Monitors
--- NOTE | 2022-10-28 10:31 | PDOC.DSDIS_ITS ---
Date of service: 10/28/22 Time of Service: 10:31 Discharge Plan Disposition Patient Disposition: Home Condition: Good Discharge Details Reason For Visit: Tonsillectomy Attending Provider: Michael Cuellar Primary Care Provider: Darlyn Cannon Home Meds and New Rx's Prescriptions: No Action medroxyprogesterone [Depo-Provera] 150 mg/mL syringe 150 mg IM ONCE Qty: 1 0RF medroxyprogesterone [Depo-Provera] 150 mg/mL suspension 150 mg IM Q12W Qty: 1 4RF ibuprofen [IBU] 600 mg tablet 600 mg PO QID PRN (Reason: pain) Qty: 20 0RF Discharge Instructions Additional Instructions: My cell phone number is [phone]. Please call with any questions or concerns. If you are unable to reach me and you feel it is an emergency, please call 911 or proceed to the emergency room Stand Alone Forms: ENT- T&A InstrCat Cuellar Referrals: Michael Cuellar MD [ [facility] STAFF PHYSICIAN] - (1 month, please call for appointment prior to patient's departure) Discharge Orders Discharge Orders: Discharge Order (Routine); Ordered 10/28/22 Ordered By: Michael Cuellar
[2022-10-28] MEDS: ceFAZolin 2 GM/50 ML BAG IVPB (10:40)
--- NOTE | 2022-10-28 10:58 | TONSIL_PTH ---
PATIENT: Kayla Hanna LOC: [facility] U#:[id number] AGE/SX: 22/F ROOM: RE10/28/[address]: Michael Cuellar MD : 2000 BED: DIS: 10/28/2022 SPEC #: [id number] RECD: 10/28/22 12:33 STATUS: TEREZA REQ #: [id number] PAULO: 10/28/22 10:[address]: Michael Cuellar DEPT: Surgical Specimen RECD BY: Karol King ENTERED: 10/28/22 12:33 SP TYPE: TONSIL OTHR DR: Darlyn Cannon Tissues: 1 - TONSIL AGE 17 & OVER 2 - TONSIL AGE 17 & OVER Procedures: GROSS AND MICRO LEVEL 3 Comments: [id number]
--- NOTE | 2022-10-28 11:21 | W.PM.OP ---
Date of service: 10/28/22 Time of Service: 11:21 Operative Note Operative Note DATE OF PROCEDURE: 10/28/22 PRE-OP DIAGNOSIS: Chronic tonsillitis POST-OP DIAGNOSIS: same PROCEDURE: Tonsillectomy SURGEON: Michael Cuellar ANESTHESIA TYPE: General LMA/ETT Refer to Anesthesia Record ESTIMATED BLOOD LOSS: 50 PATHOLOGY: other (Tonsils) COMPLICATIONS: None Patient was transported to: PACU Patient's condition: stable Indications: Patient with the above problems. Options were explained to the patient regarding further management. She elected to undergo the above procedure. Consent was filled and signed prior to surgery. Risks and benefits were reviewed. There have been no change in her history and physical. She still refuses narcotics for postop care Findings: 3+ cryptic tonsils, mildly bifid uvula, copious cryptic debris, palate otherwise intact to inspection and palpation. Adenoids atrophic without inflammation Procedure Description: After obtaining an adequate level of general endotracheal anesthesia the patient was positioned in supine position and prepped and draped in appropriate fashion. A Sandra Tito mouthgag was carefully introduced into the oral cavity and opened to reveal the soft and hard palate. 0.25% Marcaine with 1/100,000 epinephrine was injected in the submucosal planes around the tonsils. 12 blade was then used to incise mucosa along the superior, anterior, and posterior edges of the tonsil. A Blanca elevator was used to disarticulate the tonsil from the superior tonsillar fossa and then a Bellamy blade used to strip the tonsil free from the tonsillar fossa down to the inferior pole at which point time a tonsillar snare was used to amputate the tonsil from the tonsillar fossa. Following this bilaterally, electrocautery suction tip catheter set on 15 W coagulation was used to achieve relative hemostasis. The Sandra-Tito mouthgag was relaxed and reopened revealing no further bleeding. Valsalva failed to induce further bleeding. The patient was then awakened and extubated by anesthesia and taken the recovery room in stable condition. I was present throughout the entire case.
[2022-10-28] MEDS: Ondansetron 4 MG/2 ML VIAL IVP (11:47)
[2022-10-28] MEDS: ACETAMINOPHEN 1,000 MG/100 ML BTL 400 MG IVPB (11:47)
[2022-10-28] MEDS: Ibuprofen 600 MG TAB PO (13:05)
--- NOTE | 2022-10-28 13:39 | W.ANESPOSTOP ---
Postoperative Evaluation Date, Time and Location Date Performed: 10/28/22 Time Performed: 13:39 Patient Location: Day Surgery Unit Vital Signs Most Recent Imported Vital Signs: Most Recent Vital Signs Temp Pulse Resp BP Pulse Ox 36.5 C 88 18 115/75 99 10/28/22 13:10 10/28/22 13:10 10/28/22 13:10 10/28/22 13:10 10/28/22 12:24 Pain Score Most Recent Pain Score: Most Recent Pain Score Pain Level 5 10/28/22 13:10 Assessment Mental Status: Awake (Alert & Oriented to Patient Baseline) Airway and Respiratory Function: Patent airway with normal (patient baseline) respiratory exam Cardiovascular Function: Hemodynamically Stable Hydration Status: Adequately Hydrated Nausea & Vomiting: No Nausea or Vomiting Pain: Pain is tolerable per patient Peripheral Nerve Block: Patient did not receive a nerve block
== END 2022-10-28 09:03 | disposition home or self-care (01) ==
PROVIDERS: PCP Nurse Practitioner Family; Visit Provider Otolaryngology
PROC: (CPT 42826; principal; 2022-10-28 11:00)
DX: J35.01 Chronic tonsillitis (principal)
CPT/HCPCS: 42826; 81025; 88304; J0131; J0690; J1100; J2001; J2250; J2405; J2704

== ENCOUNTER 2022-11-04 16:18 | Outpatient (REF) | payer MEDICAID, SELFPAY ==
--- NOTE | 2022-11-04 15:30 | PAPFT_PTH ---
PATIENT: Kayla Hanna LOC: [facility] U#:[id number] AGE/SX: 22/F ROOM: RE11/04/[address]: Teresa Ardon NP : 2000 BED: DIS: 11/04/2022 SPEC #: [id number] RECD: 11/04/22 17:07 STATUS: TEREZA IBARRA #: [id number] PAULO: 11/04/22 15:[address]: Teresa Ardon NP DEPT: [facility] Cytology RECD BY: Malaika Prakash ENTERED: 11/04/22 17:08 SP TYPE: PAPFT OTHR DR: Darlyn Cannon Tissues: 1 - CX/ENDOCX FOR PAP SMEARS Procedures: PAP THIN PREP/UVM Screening Comments: [id number]
== END 2022-11-04 16:19 | disposition home or self-care (01) ==
LOC: LBN 16:18
PROVIDERS: PCP Nurse Practitioner Family; Visit Provider Nurse Practitioner Women's Health
DX: N76.0 Acute vaginitis (principal)
CPT/HCPCS: 88142; 87480; 87510; 87660

== ENCOUNTER 2022-11-24 18:05 | Emergency (ER) | payer MEDICAID, SELFPAY ==
[2022-11-24 18:08] VITALS: BP 117/71; PULSE 86; RESP 18; TEMP 37; O2SAT 97
--- NOTE | 2022-11-24 19:44 | ED.GENADUL_ITS ---
Discharge Plan Disposition Patient Disposition: Home Condition: Stable Discharge Details Clinical Impression: Suicidal ideation Primary Care Provider: Darlyn Cannon ED Provider: Yajaira Cintron Home Meds and New Rx's Prescriptions: Continued medroxyprogesterone [Depo-Provera] 150 mg/mL syringe 150 mg IM ONCE Qty: 1 0RF medroxyprogesterone [Depo-Provera] 150 mg/mL suspension 150 mg IM Q12W Qty: 1 4RF Discharge Instructions Instructions: Depression (ED), Help Prevent Suicide (ED) Additional Instructions: You have agreed to a safety plan which will include giving medications to mom and dad, staying in touch with them and considering therapy. Please consider your social [place] and ensure that you surround yourself with supportive in dividuals. Plan is for you to stay in touch with mental health at 4 PM each day for the least the next 3 days. if you develop recurrent thoughts of self harm or other new/worsening symptoms please seek care urgently once again. Please follow up with primary care this week for further evaluation. Referrals: Darlyn Cannon [Primary Care Provider] - Discharge Data Discharge Date/Time-TO BE ENTERED AT DEPARTURE: 11/24/22 22:23 Medical Decision Making Patient is a pleasant 22-year-old female presenting today with chief complaint of suicidal ideation. Brought in by her parents who both are at bedside and seem to be quite attentive. She continues to reside with her parents. Past medical history significant for anxiety, GERD, insomnia, abstinence syndrome, PTSD. She states that she has been on and off with her significant other since August. States that he works away during the week but during the weekend he wants to have an active relationship with her yet again. She states that recently he has blocked her on all accounts and has not wanted to speak with her. Since that time, she reports that she has had increased anxiety and depression. Has expressed wants of harming herself but denies any plan. 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 Is forward thinking. States that she is taking the Depo shot. Spoke with parents. They are able to show me imaging from when she had sent thoughts of suicide to a friend including her holding a handful of pills which parents did check and patient did not actually take. Mom believes it is antibiotics after checking the bottles. They are concerned that she is not very forthcoming with her thoughts/plans. They are very interested in helping her get support. They advise that the ex-signficant other has blocked her and that this has been very difficult. Initiaally, patient did not sound frankly suicidal but I am concerned that she may not be as honest as initially portrayed. Alternatively, this may be associated with cry for help or attention, will speak with MH in hopes that thye can help determine the actual level of SI. Patient in paper clothes, has one-to-one sitter. After she had her phone taken away, per typical protocol for patients, she began to get very upset. She was speaking quickly and angry. Requesting discharge, I advised we need to have evaluate her first and she agrees. evaluated the patient, feels that she is safe for d/c home with parents and safety plan. They plan to speak with her daily for the next few days. They are encouraging coping mechanisms. I have encouraged her to focus on her hobbies, her job, family, and try to stay away from stressful situations as much as possi ble. She will stay with parents. They are getting a safe for the medications. Strict return precautions given. will continue with work with patient. All of their questions and concerns were addressed, they are in agreement with this plan. HPI General Date/Time Provider Initiated Documentation: 11/24/22 19:43 . Limitations to Documentation: no limitations . Information obtained by: patient, family, RN notes reviewed and old records reviewed . History of Present Illness 22 year old F presents to the emergency department with the chief complaint of increased anxiety, depression, described as moderate, Patient started experiencing this month(s) (has been having increased symptoms over months of difficulty with significant other) and it has been intermittent. No relieving factors improve symptom(s), Other factors that worsen symptoms (social stressors, particularly around break up) . Patient notes no other symptoms.. Patient did receive the following treatments prior to arrival, none Related Data Home Medications Medication Instructions Recorded Confirmed medroxyprogesterone 150 mg/mL 150 mg IM Q12W #1 mL 08/15/22 11/11/22 intramuscular suspension (Depo-Provera) Previous Rx's Medication Instructions Recorded medroxyprogesterone 150 mg/mL 150 mg IM Q12W #1 mL 08/15/22 intramuscular suspension (Depo-Provera) Allergies Allergy/AdvReac Type Severity Reaction Status Date / Time No Known Allergies Allergy Verified 11/24/22 20:03 General Stated Complaint: PsychEval JESUS: 2 Review of Systems Constitutional Constitutional: Reports as per HPI, Denies fever(s) and Denies headache(s) ENT Ears, Nose, Mouth, and Throat: Denies headache(s) Cardiovascular Cardiovascular: Reports as per HPI and Denies chest pain Respiratory Respiratory: Reports as per HPI and Denies cough Gastrointestinal Gastrointestinal: Reports as per HPI, Denies abdominal pain, Denies nausea and Denies vomiting Neurologic Neurologic: Denies behavioral changes and Denies headache(s) Psychiatric Psychiatric: Reports anxiety, Denies behavioral changes, Denies change in appetite, Reports depression, Reports mood swings, Denies visual hallucinations, Denies homicidal ideation and Denies suicidal ideation (patient denied, parents are concerned that she has expressed this online) PFSH All Active Problems (Updated 11/24/22 @ 21:58 by AUBREE Barnett) Suicidal ideation (Acute) Anxiety (Chronic) Gastroesophageal reflux disease (Chronic) Heel pain (Chronic) Insomnia (Chronic) Chronic tonsillitis (Acute) Medical History (Updated 11/24/22 @ 21:58 by AUBREE Barnett) Abnormal chest xray nodule resolved BMI 27.0-27.9,adult Fracture of distal phalanx of left thumb (01/10/19) 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 states nothing is a trigger at this time Recurrent tonsillitis Had eval with ENT- no indication for tonsillectomy at this point (10/27/20) Surgical History Hx of tonsillectomy 10/28/2022 Family History Mother Substance abuse Alcohol abuse Half-sibling Substance abuse Social History Smoking/Tobacco Use Status: Never Second Hand Exposure: No Smoking risk assessment performed?: Yes Alcohol Intake: current Alcohol Intake frequency: a few times a month Alcohol type: hard liquor Drug use: Never Substance use type: does not use Household members: family Housing: house Pets and animals: Yes Pets and animals: cat(s) and farm animals Current gender identity: female Seatbelt use: always Helmet use: Yes Helmet use: always Water heater temp set <120 deg: Yes Working smoke detector in home: Yes Fire extinguisher in home: Yes Carbon monox detector in home: Yes Firearms in home: Yes Firearms unloaded and locked: Yes Do you feel safe at home: Yes Do you feel safe in your relationship?: Yes Female Reproductive History Menstrual control method: progesterone injection History History 0 Para Hx # Term Pregnancies Multiple births Hx # Pregnancies Ectopic pregnancies AB induced Hx Number of Living Children AB spontaneous Exam Const General: cooperative, healthy appearing, comfortable, no acute distress, well developed and well groomed Nutritional Appearance: average body habitus and well nourished Orientation: alert and awake Eyes General: appearance normal, both eyes and all related structures Resp Effort & Inspection: normal respiratory effort, able to speak in complete sentences and no respiratory distress Auscultation: clear to auscultation bilaterally, no rales, no rhonchi and no wheezes Cardio Rate: regular rate Rhythm: regular rhythm Heart Sounds: S1 normal and S2 normal Skin General skin exam: no rashes or lesions noted Trauma: no lacerations or abrasions Neuro General: patient alert and patient awake Cognition: normal cognition Speech: speech normal Gait: normal gait Course Vital Signs Vital signs: Vital Signs Temperature 37.0 C 11/24/22 18:08 Pulse 86 11/24/22 18:08 Respiratory Rate 18 11/24/22 18:08 Blood Pressure 117/71 11/24/22 18:08 Pulse Oximetry 97 11/24/22 18:08 Temperature 37.0 C 11/24/22 18:08 Pulse 86 11/24/22 18:08 Respiratory Rate 18 11/24/22 18:08 Blood Pressure 117/71 11/24/22 18:08 Blood Pressure Position Sitting 11/24/22 18:08 Pulse Oximetry 97 11/24/22 18:08 Oxygen Delivery Method Room Air 11/24/22 18:08 Oxygen Flow Rate 0 11/24/22 18:08
[2022-11-24 22:20] VITALS: BP 106/73; PULSE 74; TEMP 36.2; O2SAT 97
--- NOTE | 2022-11-25 11:56 | PDOC.MHCN_ITS ---
Date of service: 11/24/22 Time of Service: 20:57 PHQ-9 Over the last 2 weeks, how often have you been bothered by any of the following problems? 1. Little interest or pleasure in doing things: nearly every day 2. Feeling down, depressed, or hopeless: nearly every day 3. Trouble falling or staying asleep, or sleeping too much: nearly every day 4. Feeling tired or having little energy: nearly every day 5. Poor appetite or overeating: more than half the days 6. Feeling bad about yourself - or that you are a failure or have let yourself and your family down: several days 7. Trouble concentrating on things, such as reading the newspaper or watching television: several days 8. Moving or speaking so slowly that other people could have noticed? - Or the opposite - being so fidgety or restless that you have been moving around a lot more than usual: several days 9. Thoughts that you would be better off or of hurting yourself in some way: more than half the days Total score: 19 If you checked off any problems, how difficult have these problems made it for you to do your work, take care of things at home, or get along with other people?: somewhat difficult PHQ-9 Results: Positive Source: Developed by Drs. Miguel Rader, Elvi Gutierrez, Magdaleno Daniel and colleagues, with an educational chema from [employer]. Suicide Severity Rate CSSRS Have you wished you were or wished you could go to sleep and not wake up?: Yes Have you actually had any thoughts of killing yourself?: Yes CSSRS2 Have you been thinking about how you might do this?: No Have you had these thoughts and had some intention of acting on them?: No Have you started to work out or worked out the details of how to kill yourself? Do you intend to carry out this plan?: No CSSRS3 Have you ever done anything, started to do anything or prepared to do anything to end your life?: No CSSRS4 Was this within the past three months?: No Screening Score Total Score: 4 Screening: Positive Mental Health Emergency Note Release [facility] release signed:: Yes Reason for Visit Client is unknown to [facility] prior to this commercial lines underwriter's interaction with the client this evening. Intake paperwork completed with the client and verbal signatures obtained. Client presented to [facility] ED with her parents for fleeting suicidal ideations and increased depression. This commercial lines underwriter assesses the client via zoom. In the last 2 weeks has the pt presented for ES prior to today?: No Client Information Client is: New Well Housed: Yes Non Suicidal Self Injury Current: No History: No Safety Risk/Harm to Self or Others Current Ideation to Harm Self or Others: Yes to self. (Client reports fleeting thoughts of SI. ) Intent: no, has no intent. Plan: no.does not have a plan. History of suicide attempt: No history of suicide attempt reported Risk: Does risk to harm exist?: yes. Access to means: No. Risk: Low Risk Duty to warn indicated: No Asssessment/Mental Status Appearance: Unremarkable Attitude: Guarded Behavior: Unremarkable Speech: Soft and Slow Affect: Flat and Cogruent with mood Mood: Stressed and Depressed Thought process: Unremarkable Hallucinations: No Delusions: No Perception: Not impaired Orientation: Fully orientated Memory: Intact Insight: Poor Judgement: Poor Neurovegetative Symptoms Sleep: Decrease (Client reports poor sleep. ) Appetitie: Decrease (Client reports poor appetite. ) Interests: Decrease Energy: Decrease Libido: Not applicable Substance Use: Do you use nicotine?: No Have you used substances in the last 7 days?: No Additional Issues: Assaultive/Threatening Behavior: No Medical Concerns: No Client engaged in active self harm w/weapon: No Threatening to run away: No Child reported abuse/neglect: No Voluntarily presenting for services: Yes Domestic violence is a concern: No Extreme Psychosis or extreme behavior is present: No Impression Client is a 22 y/o single female that resides in [place], [place] with her parents. 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 Client is seen via telehealth at [facility] ED. Client presents with symptoms most congruent to major depressive disorder as evidenced by self-report, decrease in sleep and appetite, fleeting suicidal ideations, and lack of interest and energy in doing things that used to bring her juanita. Per report of the ED provider Mercedes, the clients parents showed her a snapchat story that the client posted last evening. The snapchat story was a bunch of antibiotic medications that were laid out on her bed with the caption: live your life to the fullest. Client reports that she was supposed to hang out with her ex-boyfriend last evening to work on things however he instead chose to go to a republican. Client reports that she laid the pills out last evening out of impulse and did not intend to carry through with her plan. Client reports to this commercial lines underwriter that she has a difficult time talking about her feelings and does not like to open up. Although the client appeared to be guarded, she was able to share some information with this commercial lines underwriter. Client would benefit from outpatient therapy services, however she declines a referral at this time. Client is agreeable to completing check-in phone calls. Resources [facility] reviewed and given:: [phone] and [facility] Plan/Disposition Recommended Disposition: PCP/Office visit and [facility] Services (Check-in phone calls daily at 4p through 11/27) [facility] Services: Other. Plan: Client does not wish to have a referral to therapy at this time. Client will be discharged from [facility] on a pro-active safety plan which includes daily check-in phone calls through 11/27 @ 4p and scheduling a follow-up appointment with her PCP. Client is also provided with [facility] 24 hour phone number and [phone] to utilize as additional supports if needed outside of check-in phone calls. Person reported agreement to plan: Yes Reports/communication Outcome discussed with: ED/Personnel (Verbal passover given to ED provider Buddy martini. )
== END 2022-11-24 22:23 | disposition home or self-care (01) ==
PROVIDERS: Emergency Provider Physician Assistant; PCP Nurse Practitioner Family
DX: F32.A Depression, unspecified (principal); F41.9 Anxiety disorder, unspecified; R45.851 Suicidal ideations
CPT/HCPCS: 99285

== ENCOUNTER 2023-01-22 19:48 | Emergency (ER) | payer BC, SELFPAY ==
[2023-01-22 19:53] VITALS: BP 115/77; PULSE 87; RESP 16; TEMP 37.1; O2SAT 100
[2023-01-22 20:38] LABS: Bilirubin Negative (Negative); Blood Negative (Negative); Clarity Clear (Clear); Glucose Negative (Negative); Ketones Negative (Negative); Leukocyte Esterase Trace (Negative); Nitrite Negative (Negative); Specific Gravity 1.025 (1.005-1.025); Urobilinogen 0.2 mg/dL (Up to 0.2)
[2023-01-22] MEDS: Acetaminophen 500 MG TAB 1000 MG PO (20:42)
[2023-01-22] MEDS: Ibuprofen 800 MG TAB PO (20:42)
[2023-01-22 20:47] LABS: Bacteria Many HPF (Negative); C & S Indicated? No/Sq. Contamination; Crystals Negative HPF (Negative); Epithelial Cells Many HPF (Negative); Mucus Heavy (Negative); RBC 0-2 HPF (0-2)
--- NOTE | 2023-01-22 21:11 | W.ED.GENAD ---
Discharge Plan Disposition Patient Disposition: Home Condition: Good Discharge Details Clinical Impression: Abdominal pain Primary Care Provider: Darlyn Cannon ED Provider: Lisseth Murray Home Meds and New Rx's Prescriptions: No Action medroxyprogesterone [Depo-Provera] 150 mg/mL syringe 150 mg IM ONCE Qty: 1 0RF medroxyprogesterone [Depo-Provera] 150 mg/mL suspension 150 mg IM Q12W Qty: 1 4RF Discharge Instructions Instructions: Abdominal Pain (ED) Additional Instructions: Take tylenol and ibuprofen over the counter as needed for pain; follow the directions on the bottle. Call your primary care doctor today to schedule an appointment within the next week to follow up on your visit today. Return to the emergency department for new or worsening symptoms including if your pain worsens or if you have any other concerns. Medical Decision Making 22yo previously healthy female presenting with 1 week of persistent right sided abdominal pain; dull, moderate, constant, and worse with movement. Diarrhea today, no other associated symptoms. Taking good PO. Has not taken anything for pain. Vital signs reassuring on arrival. Benign abdominal exam with very mild tenderness to deep palpation of mid-right abdomen. No lower abdominal tenderness. Negative Jerry's. Very low suspicion for acute intraabdominal process such as obstruction or appendicitis, symptoms/exam not consistent with gallbladder pathology, no lower abdominal tenderness to suggest ovarian pathology. Discussed with patient options for further workup including risks/benefits of CT scan; she would prefer to forgo this at this time. I advised getting bloodwork to further risk stratify which she declined. Given her very reassuring exam this is reasonable. Will treat with tylenol & ibuprofen. Upreg negative, UA not suggestive of infection. On reassessment pain is minimally improved, vital signs and abdominal exam remain extremely reassuring. Discharged home; discharge instructions including return precautions were reviewed with patient who verbalized understanding. All questions were answered and they are in full agreement with the plan. Lab Data Lab results reviewed: Yes I reviewed the patient's lab results. Labs: Laboratory Tests Range/Units 01/22/23 20:05 Urine Color (Yellow) Yellow Urine Clarity (Clear) Clear Urine pH (5-8) 6.0 Ur Specific [place] (1.005-1.025) 1.025 Urine Protein (Negative) mg/dL Negative Urine Ketones (Negative) mg/dL Negative Urine Blood (Negative) Negative Urine Nitrite (Negative) Negative Urine Bilirubin (Negative) Negative Urine Urobilinogen (Up to 0.2) mg/dL 0.2 Ur Leukocyte Esterase (Negative) Trace H Urine RBC (0-2) HPF 0-2 Urine WBC (0-5) HPF 5-10 Ur Epithelial Cells (Negative) HPF Many Urine Crystals (Negative) HPF Negative Urine Bacteria (Negative) HPF Many Urine Mucus (Negative) Heavy Ur Culture Indicated? No/Sq. Contamination Urine Glucose (Negative) mg/dL Negative HPI General Mode of arrival: ambulatory. Date/Time Provider Initiated Documentation: 01/22/23 19:50. Limitations to Documentation: no limitations. Information obtained by: patient. HPI Narrative: 22yo previously healthy female presenting with 1 week of persistent right sided abdominal pain. Pain is dull, moderate, constant, and worse with movement. No nausea or vomiting; single episode of diarrhea today, nonbloody. No dysuria or hematuria. No vaginal bleeding or vaginal discharge; has not had menstrual periods while on Depo Provera. No fevers. Has not taken anything at home for pain. She is otherwise in her usual state of health. Related Data Home Medications Medication Instructions Recorded Confirmed medroxyprogesterone 150 mg/mL 150 mg IM Q12W #1 mL 08/15/22 01/21/23 intramuscular suspension (Depo-Provera) Previous Rx's Medication Instructions Recorded medroxyprogesterone 150 mg/mL 150 mg IM Q12W #1 mL 08/15/22 intramuscular suspension (Depo-Provera) Allergies Allergy/AdvReac Type Severity Reaction Status Date / Time No Known Allergies Allergy Verified 01/22/23 19:57 General Stated Complaint: Abd Prob JESUS: 3 Review of Systems Narrative: see HPI PFSH All Active Problems (Updated 01/22/23 @ 21:23 by Lisseth Murray MD) Abdominal pain (Acute) Anxiety (Chronic) Gastroesophageal reflux disease (Chronic) Heel pain (Chronic) Insomnia (Chronic) Chronic tonsillitis (Acute) Medical History (Updated 01/22/23 @ 21:23 by Lisseth Murray MD) Abnormal chest xray nodule resolved BMI 27.0-27.9,adult Fracture of distal phalanx of left thumb (01/10/19) 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 states nothing is a trigger at this time Recurrent tonsillitis Had eval with ENT- no indication for tonsillectomy at this point (10/27/20) Surgical History Hx of tonsillectomy 10/28/2022 Family History Mother Substance abuse Alcohol abuse Half-sibling Substance abuse Social History Smoking/Tobacco Use Status: Never Second Hand Exposure: No Smoking risk assessment performed?: Yes Alcohol Intake: current Alcohol Intake frequency: a few times a month Alcohol type: hard liquor Drug use: Never Substance use type: does not use Household members: family Housing: house Pets and animals: Yes Pets and animals: cat(s) and farm animals Current gender identity: female Seatbelt use: always Helmet use: Yes Helmet use: always Water heater temp set <120 deg: Yes Working smoke detector in home: Yes Fire extinguisher in home: Yes Carbon monox detector in home: Yes Firearms in home: Yes Firearms unloaded and locked: Yes Do you feel safe at home: Yes Do you feel safe in your relationship?: Yes Female Reproductive History Menstrual control method: progesterone injection History History 0 Para Hx # Term Pregnancies Multiple births Hx # Pregnancies Ectopic pregnancies AB induced Hx Number of Living Children AB spontaneous Exam Narrative Exam Narrative: General: Alert, well appearing, well nourished, in no acute distress. Head: Normocephalic, atraumatic Neck: Trachea midline, Neck supple. ENT: MMM. No oropharygeal lesions or exudate. Cardiac: RRR, no murmurs appreciated Resp: No respiratory distress. CTAB. Abd: Soft, non-distended, minimal mid-right abdominal tenderness with deep palpation. No rebound or guarding : No suprapubic tenderness. Extremities: No deformities. No peripheral edema. Neurologic: GCS 15. Moves all extremities freely against gravity Course Vital Signs Vital signs: Vital Signs Temperature 37.1 C 01/22/23 19:53 Pulse 87 01/22/23 19:53 Respiratory Rate 16 01/22/23 19:53 Blood Pressure 115/77 01/22/23 19:53 Pulse Oximetry 100 01/22/23 19:53 Temperature 37.1 C 01/22/23 19:53 Temperature Source Tympanic 01/22/23 19:53 Pulse 87 01/22/23 19:53 Respiratory Rate 16 01/22/23 19:53 Respiratory Effort Normal, Non-Labored 01/22/23 19:56 Blood Pressure 115/77 01/22/23 19:53 Blood Pressure Position Sitting 01/22/23 19:53 Pulse Oximetry 100 01/22/23 19:53 Oxygen Delivery Method Room Air 01/22/23 19:53 Oxygen Flow Rate 0 01/22/23 19:53 Pain Level 7 01/22/23 19:53 Lab/Test Results Lab/Test Results: Laboratory Tests Range/Units 01/22/23 20:05 Urine Color (Yellow) Yellow Urine Clarity (Clear) Clear Urine pH (5-8) 6.0 Ur Specific [place] (1.005-1.025) 1.025 Urine Protein (Negative) mg/dL Negative Urine Ketones (Negative) mg/dL Negative Urine Blood (Negative) Negative Urine Nitrite (Negative) Negative Urine Bilirubin (Negative) Negative Urine Urobilinogen (Up to 0.2) mg/dL 0.2 Ur Leukocyte Esterase (Negative) Trace H Urine RBC (0-2) HPF 0-2 Urine WBC (0-5) HPF 5-10 Ur Epithelial Cells (Negative) HPF Many Urine Crystals (Negative) HPF Negative Urine Bacteria (Negative) HPF Many Urine Mucus (Negative) Heavy Ur Culture Indicated? No/Sq. Contamination Urine Glucose (Negative) mg/dL Negative POC- Test(urine) Negative
[2023-01-22 21:29] VITALS: BP 105/67; PULSE 77; PULSE 80; RESP 15; O2SAT 99
== END 2023-01-22 21:31 | disposition home or self-care (01) ==
PROVIDERS: Emergency Provider Student in an Organized Health Care Education/Training Program; PCP Nurse Practitioner Family
DX: R10.9 Unspecified abdominal pain (principal)
CPT/HCPCS: 81025; 99282; 81003; 81015; 99283

== ENCOUNTER 2023-08-14 15:22 | Outpatient (REF) | payer BC, SELFPAY ==
[2023-08-16 12:54] LABS: Chlamydia Result Negative (Negative); GC Result Negative (Negative)
[2023-08-16 13:58] LABS: HSV 1 DNA Result Positive (Negative); HSV 2 DNA Result Negative (Negative)
== END 2023-08-14 15:23 | disposition home or self-care (01) ==
LOC: LBN 15:22
PROVIDERS: PCP Nurse Practitioner Family; Visit Provider Advanced Practice Midwife
DX: Z20.2 Contact with and (suspected) exposure to infections with a predominantly sexual mode of transmission (principal)
CPT/HCPCS: 87491; 87529; 87591; 87480; 87510; 87660

== ENCOUNTER 2023-12-24 20:06 | Emergency (ER) | payer BC, SELFPAY ==
[2023-12-24 20:10] VITALS: BP 115/80; PULSE 94; RESP 18; TEMP 36.6; O2SAT 96
--- OUTSIDE RECORDS SUMMARY | 2023-12-24 20:45 | XMS_ITS | Encounter Summary ---
Author Organization [facility] [place] [address] Care Team Providers Care Service Parts Driver Name Role Phone Darlyn Cannon APRN Primary Care Provider [phone] Reason for Referral * Consultation (Routine) - Closed Specialty Diagnoses / Procedures Referred By Anitha t Referred To Contact Plastic Surgery Diagnoses Macromastia BBR Jerod Lopez MD [address] [place] [address] [facility] [address] [place] [phone] Referral ID Status Reason Start Date Expiration Date V isits Requested Visits Authorized [id number] Closed Consult, Test & Treat PCP Updated and/or Approved 10/31/2022 10/31/2023 12 12 Encounter Details Date Type Department Care Team (Late st Contact Info) Description 10/31/2022 Transcribe Orders eDH Incoming Referrals [phone] Jerod Lopez MD [address] [place] [address] Macromastia Social History Tobacco Use Types Packs/Day Years Used Date Smoking Tobacco: Never Assessed Sex and Gender Information Value Date Recorded Sex Assigned at Not on file Gender Identity Not on file Sexual Orientation Not on file documented as of this encounter Plan of Treatment Scheduled Referrals Name Type Priority Associated Diagnoses Orde r Schedule Referral to Plastic Surgery Outpatient Referral Routine Macromastia Ordered: 10/31/2022 documented as of this encounter Visit Diagnoses Diagnosis Macromastia Hypertrophy of breast documented in this encounter Care Teams Service Parts Driver Relationship Specialty Start Date End Date Darlyn Cannon APRN [address] [place] [address] PCP - General Family Medicine 10/31/22 documented as of this encounter
--- OUTSIDE RECORDS SUMMARY | 2023-12-24 20:45 | XMS_ITS | Referral Summary ---
Author Organization [facility] Address [address] [place] [address] Care Team Providers Care Passenger Booking Clerk Name Role Phone Unknown, Provider Primary Care Provider [phone] Social History Tobacco Use Types Packs/Day Years Used Date Smoking Tobacco: Never Assessed Sex and Gender Information Value Date Recorded Sex Assigned at Not on file Gender Identity Not on file Sexual Orientation Not on file Plan of Treatment Not on file Care Teams Passenger Booking Clerk Relationship Specialty Start Date End Date Unknown, Provider, PCP - General 05/30/14
--- OUTSIDE RECORDS SUMMARY | 2023-12-24 20:45 | XMS_ITS | Continuity of Care Document ---
[facility] Organization [facility] Address [address] [place] [address] Assessment No assessment recorded. Plan of Treatment Reminders Order Date Submit Date Provider Last Modified By Organization Details Last Modified Time Details Appointments Annual Wellness Exam 40 2024 11:50A M Not available Not available Not available Lab None recorded. Referral plastic surgeon referral 2023 024 [email or web address] [facility], [address] [place] [address] [place], [address], 12/09/2023 11:27:31 Procedures None recorded. Surgeries None recorded. Imaging None recorded. Medication Orders None recorded. Patient TargetsNo targets recorded. Patient Instructions Encounter Date Encounter Id Patient Instructions Last Modified By Organization Details Last Modified Time 10/28/2023 [id number] Annual Exam - Pa p done 10/2022 - WNL Due for covid and tetanus [facility] Not available 10/24/2023 07:22:44 Reason for Referral Plastic Surgeon Referral for Hypertrophy of breast Referring Physician: Yohannes Cannon, Family Medicine, Encounter Date: 10/28/2023 Problems Name Problem SNOMED Code Status Onset Date Resolution Date Notes Provider Name and Address Organization Details Recorded Time Insomnia 998305641 Active 2021 Problem Code: G47.00; Problem Code Type: ICD-10; Not Available [facility] 3 05:48:26 Anxiety disorder 456952525 Active 202111/07/19 22 - Comments only - Yohannes Cannon [employer] - Will continue to monitor, at this time seems most related to her work. Problem Code: F41.9; Problem Code Type: ICD-10; Not Available [facility] 3 05:48:26 Body mass index 25-29 - overweig ht 333234244 Active 2021 Problem Code: Z68.27; Problem Code Type: ICD-10; Not Available [facility] 3 05:48:27 Posttrau matic stress disorder 73914839 Active 2021 Problem Code: F43.10; Problem Code Type: ICD-10; Not Available [facility] 05:48:27 Recurren t acute tonsilli tis 133937460 Active 2021 Problem Code: J03.91; Problem Code Type: ICD-10; Not Available [facility] 3 05:48:27 Hypertro phy of breast 957710681 Active 2022 Problem Code: N62; Problem Code Type: ICD-10; Not Available [facility] 3 05:48:27 Adult health examinat ion Active 2022 Problem Code: Z00.00; Problem Code Type: ICD-10; Not Available [facility] 3 05:48:27 Acute pharyngi tis 128104136 Completed 202208/05/2022 Problem Code: J02.9; Problem Code Type: ICD-10; Not Available [facility] 3 05:48:27 Gastroes ophageal reflux disease without esophagi tis 357219758 Completed 202111/06/2021 Problem Code: K21.9; Problem Code Type: ICD-10; Not Available [facility] 3 05:48:27 Right Achilles tendinit is 38206825586 9102 Completed 202108/05/2022 Problem Code: M76.61; Problem Code Type: ICD-10; Not Available [facility] 3 05:48:27 History of clinical finding in subject 030473738 Completed 202111/06/2021 Problem Code: Z87.898; Problem Code Type: ICD-10; Not Available [facility] 3 05:48:28 Chest pain 77885309 Completed 202108/05/2022 Problem Code: R07.9; Problem Code Type: ICD-10; Not Available [facility] 05:48:28 Counseli sh[place] Completed 202112/13/2021 Problem Code: Z71.89; Problem Code Type: ICD-10; Not Available [facility] 05:48:28 Foot pain 96628478 Completed 202108/05/2022 Problem Code: M79.673; Problem Code Type: ICD-10; Not Available [facility] 05:48:28 Hand wart 126706694 Active [address], [place], [address] , [facility] 15:50:37 Notes:*Problem Name: Other s pecified abnormal uterine and vaginal bleeding *Problem Status: inactive *Comments: *Problem Code: N93.8 *Problem Code Type: ICD-10 *Note Date: 10/16/2021 Problem Notes None recorded. Procedures Surgical History Date Name Laterality Status Provider Name and Address Organization Details Recorded Time Cryosurgery Warts/Skin Tags completed [address], [place], [address], [facility] 10/29/2023 15:50:29 Imaging Results None recorded. Procedure Notes None recorded. Medical Equipment None Reported. Allergies No known drug allergies Medications Name Sig Start Date Stop Date Status Note LastModified by Organization Details LastModified Time fluconazole 150 mg tablet TAKE ONE TABLET BY MOUTH ONCE FOR 1 DOSE; REPEAT IN 48 HOURS 10/27 completed Not Available Not Available Not Available valacyclovi r 1 gram tablet TAKE ONE TABLET BY MOUTH TWICE A DAY FOR 5 DAYS 10/27 completed Not Available Not Available Not Available hydrocodone 5 mg-acetamin ophen 325 mg tablet TAKE 1/2 TO 1 TABLET BY MOUTH EVERY 3 HOURS NEEDED FOR SEVERE PAIN ( MAY CRUSH) 10/27 completed Not Available Not Available Not Available Seroquel 25 mg tablet Take 1/2 tablet by mouth at bedtime as needed 05/22 completed Not Available Not Available Not Available metronidazo le 500 mg tablet TAKE ONE TABLET BY MOUTH TWICE A DAY FOR 7 DAYS 10/27 completed Not Available Not Available Not Available ibuprofen 600 mg tablet 12/13 completed Not Available Not Available Not Available medroxyprog esterone 150 mg/mL intramuscul ar suspension INJECT 150MG INTRAMUSC ULARLY EVERY 12 WEEKS active Not Available Not Available No t Available Bactrim DS 800 mg-160 mg tablet take 1 tab bid for 7 days 05/18 completed Not Available Not Available Not Available medroxyprog esterone 150 mg/mL intramuscul ar syringe INJECT 150MG INTO THE MUSCLE EVERY 3 MONTHS 10/27 completed Not Available Not Available Not Available Vitals Date Recorded Body weight Body temperature Oxygen saturation Oxygen saturation in Arterial blood by Pulse oximetry Heart rate Systolic blood pressure Diastolic blood pressure Provider Name and Address Organization Details Last Updated DateTime 4 21995.9 8 g 96.7 [degF] 98 % 98 % 100 /min 104 mm[Hg] 70 mm[Hg] Alexandra Rodas RN [facility] 14:20:57 Social History Question Answer Notes LastModified by Organizat ion Details LastModified Time Tobacco Smoking Status Never Smoker [facility] 10/28/2023 14:19:53 Would You Say That, In General, Your Health Is Fair Information not available 10/28/2023 Women Aged 18-50 - Would You Like To Become In The Next Year? (Female Patients Only) Ok Either Way Information not available 10/28/2023 How Often Does Anyone, Including Family, Physically Hurt You? Never Information not available 10/28/2023 How Often Does Anyone, Including Family, Insult Or Talk Down To You? Sometimes Information no t available 10/28/2023 How Often Does Anyone, Including Family, Threaten You With Harm? Never Information not available 10/28/2023 How Often Does Anyone, Including Family, Scream Or Curse At You? Sometimes Information not available 10/28/2023 Within The Past 12 Months, You Worried That Your Food Would Run Out Before You Got Money To Buy More. Never True Information n ot available 10/28/2023 Within The Past 12 Months, The Food You Bought Just Didn't Last And You Didn't Have Money To Get More. Never True Information n ot available 10/28/2023 How Hard Is It For You To Pay For The Very Basics Like Food, Housing, Medical Care, And Heating? Would You Say It Is: Not Hard At All Information not available 10/28/2023 In The Past 12 Months, Has Lack Of Reliable Transportation Kept You From Medical Appointments, Meetings, Work Or From Getting Things Needed For Daily Living? No Information not available 10/28/2023 What Is Your Housing Situation Today? I Have Housing Today But I Am Worried About Losing Housing In The Future Parents Are kicking Me Ut At The End Of Summer Information not available 10/28/2023 How Often In The Past Year Have You Used Marijuana (including Smoking, Vaping, Dabbing, Or Edibles)? Never Information not available 10/28/2023 How Often In The Past Year Have You Used Prescription Medications That Were Not Prescribed To You? Never Information n ot available 10/28/2023 How Often In The Past Year Have You Taken Your Own Prescription Medication More Than The Way It Was Prescribed Or For Different Reasons Than Its Intended Purpose? Never Information no t available 10/28/2023 How Often In The Past Year Have You Used Other Drugs (for Example, Heroin, Cocaine, Meth, Salvia, Inhalants)? Never Information not available 10/28/2023 Have You Ever Used IV Drugs? No Information not available 10/28/2023 Date Of Most Recent SBINS 10/28/2023 Information not available 10/28/2023 What Was The Date Of Your Most Recent Tobacco Screening? 10/28/2023 Information not available 10/28/2023 Has Tobacco Cessation Counseling Been Provided? Yes Information not available 10/28/2023 On What Date Was Tobacco Cessation Counseling Provided? 10/28/2023 Information not available 10/28/2023 Do You Or Have You Ever Used Any Other Forms Of Tobacco Or Nicotine? No Information not available 10/28/2023 Sex: Female Functional Status None recorded. Mental Status None recorded. Family History Nothing Reported Notes:*Problem: Mother Isidro arevaloe abuse Alcohol Abuse Half- Sibling Substance Abuse Medical History No medical history recorded. Gynecological HistoryNo gynecological history recorded. Obstetrics History GPAL:G 0 P 0 0 0 0 Immunizations Vaccine Type Date Status Provider Name and Address Organization Details Recorded Time MMR 12/29/2006 completed Not Available [facility] 05:34:38 MMR 01/26/2003 completed Not Available [facility] 05:34:38 DTaP, unspecified formulation 2001 completed Not Available [facility] 02/28/2023 05:34:38 DTaP, unspecified formulation 12/29/2006 completed Not Available [facility] 02/28/2023 05:34:38 DTaP, unspecified formulation 01/06/2002 completed Not Available [facility] 02/28/2023 05:34:38 DTaP, unspecified formulation 01/26/2003 completed Not Available [facility] 02/28/2023 05:34:38 DTaP, unspecified formulation 03/17/2002 completed Not Available [facility] 02/28/2023 05:34:38 meningococcal ACWY, unspecified formulation 09/30/2012 completed Not Available [facility] 02/28/2023 05:34:38 meningococcal ACWY, unspecified formulation 10/01/2018 completed Not Available [facility] 02/28/2023 05:34:38 Tdap 09/30/2012 completed Not Available [facility] 05:34:39 HPV, unspecified formulation 10/01/2013 completed Not Available [facility] 02/28/2023 05:34:39 HPV, unspecified formulation 10/04/2014 completed Not Available [facility] 02/28/2023 05:34:39 HPV, unspecified formulation 04/12/2015 completed Not Available [facility] 02/28/2023 05:34:39 Hib, unspecified formulation 2001 completed Not Available [facility] 02/28/2023 05:34:39 Hib, unspecified formulation 01/06/2002 completed Not Available [facility] 02/28/2023 05:34:39 Hib, unspecified formulation 01/26/2003 completed Not Available [facility] 02/28/2023 05:34:39 Hib, unspecified formulation 03/17/2002 completed Not Available [facility] 02/28/2023 05:34:39 varicella 09/14/2003 completed Not Available [facility] 05:34:39 varicella 01/04/2008 completed Not Available [facility] 05:34:39 SARS-COV-2 (COVID-19) vaccine, UNSPECIFIED 04/22/2021 completed Not Available [facility] 02/28/2023 05:34:39 SARS-COV-2 (COVID-19) vaccine, UNSPECIFIED 08/31/2020 completed Not Available [facility] 02/28/2023 05:34:39 SARS-COV-2 (COVID-19) vaccine, UNSPECIFIED 09/21/2020 completed Not Available [facility] 02/28/2023 05:34:40 pneumococcal polysaccharide PPV23 2001 completed Not Available [facility] 2022 05:34:40 pneumococcal polysaccharide PPV23 01/06/2002 completed Not Available [facility] 2022 05:34:40 pneumococcal polysaccharide PPV23 03/17/2002 completed Not Available [facility] 2022 05:34:40 Hep B, unspecified formulation 06/29/2002 completed Not Available [facility] 02/28/2023 05:34:40 Hep B, unspecified formulation 2001 completed Not Available [facility] 02/28/2023 05:34:40 Hep B, unspecified formulation 03/17/2002 completed Not Available [facility] 02/28/2023 05:34:40 Hep A, unspecified formulation 09/05/2015 completed Not Available [facility] 02/28/2023 05:34:40 Hep A, unspecified formulation 02/26/2017 completed Not Available [facility] 02/28/2023 05:34:40 influenza, unspecified formulation 01/18/2019 completed Not Available [facility] 02/28/2023 05:34:40 influenza, unspecified formulation 01/21/2013 completed Not Available [facility] 02/28/2023 05:34:40 influenza, unspecified formulation 01/28/2020 completed Not Available [facility] 02/28/2023 05:34:40 influenza, unspecified formulation 03/02/2018 completed Not Available [facility] 02/28/2023 05:34:40 influenza, unspecified formulation 03/27/2017 completed Not Available [facility] 02/28/2023 05:34:41 influenza, unspecified formulation 04/12/2015 completed Not Available [facility] 02/28/2023 05:34:41 influenza, unspecified formulation 04/13/2014 completed Not Available [facility] 02/28/2023 05:34:41 polio, unspecified formulation 2001 completed Not Available [facility] 02/28/2023 05:34:41 polio, unspecified formulation 12/29/2006 completed Not Available [facility] 02/28/2023 05:34:41 polio, unspecified formulation 01/06/2002 completed Not Available [facility] 02/28/2023 05:34:41 polio, unspecified formulation 01/26/2002 completed Not Available [facility] 02/28/2023 05:34:41 Past Encounters Encounter ID Performer Location Encounter Start Date Encounter Closed Date Diagnosis/Indication Diagnosis SNOMED-CT Code Diagnosis ICD10 Code [id number] [address] [address] 10/28/2023 13:56:40 10/28/2023 15:07:28 Hypertrophy of breast 526301871 N62 Hand wart 563507779 B07. 8 Adult heal th examination 656688343 Z00.00 Health Concerns Section Related Observation LastModified by Organization Detai ls LastModified Time None Recorded Concern Status LastModified by Organization Details LastModified Time None Recorded Payers Encounter Date Sequence Insurance Name Policy Number Policy Schreiber Covered Member ID Schreiber Member ID Guarantor Name 10/28/2023 1 [place] [facility] [id number] Kayla Hanna [id number] Kayla Hanna Notes Date Note Type Note Provider Name and Address Organization Details Recorded Time 10/28/2023 text/html HPI Notes: Kayla is here today for annual exam and review of preventative care. She has a couple of warts on her fingers that she would like cryotherapy on. She has had cryotherapy in the past with good effect on different warts. She also would like a referral to [facility] for consideration of breast reduction. She states that she has chronic back pain that she attributes to breast size as well as difficulty with her close fitting correctly. She does note insomnia on intake paperwork however she reports that this is situational due to her sleeping environment. YOHANNES CANNON, STALIN [address], [place], [address], [facility]. 10/29/2023 15:52:21 OBGyn Episode No OBEpisode recorded.
--- OUTSIDE RECORDS SUMMARY | 2023-12-24 20:45 | XMS_ITS | Clinical Summary ---
Author Organization [facility] Address [address] [place] [address] Care Team Providers Care Reservation Sales Agent Name Role Phone Unknown, Provider Primary Care Provider Social History Tobacco Use Types Packs/Day Years Used Date Smoking Tobacco: Never Assessed Sex and Gender Information Value Date Recorded Sex Assigned at Not on file Gender Identity Not on file Sexual Orientation Not on file Plan of Treatment Health Maintenance Due Date Last Done Comments Hepatitis C Screen 2001 Hepatitis B Vaccine (1 of 3 - 19+ 3-dose series) 09/06 COVID-19 Vaccine ( season) 2023 Care Teams Reservation Sales Agent Relationship Specialty Start Date End Date Unknown, Provider, PCP - General 05/30/14
--- OUTSIDE RECORDS SUMMARY | 2023-12-24 20:45 | XMS_ITS | Data Portability ---
Author Organization [place] - [facility] Address [address] [place] [address] Assessment No assessment recorded. Plan of Treatment Reminders Order Date Submit Date Provider Last Modified By Organization Details Last Modified Time Details Appointments Annual Wellness Exam 40 2024 11:50A M Not available Not available Not available Lab None recorded. Referral plastic surgeon referral 2023 024 [facility], [address] [place] [address] [place], [address], 12/09/2023 11:27:31 Procedures None recorded. Surgeries None recorded. Imaging None recorded. Medication Orders None recorded. Patient TargetsNo targets recorded. Patient Instructions Encounter Date Encounter Id Patient Instructions Last Modified By Organization Details Last Modified Time 10/28/2023 [id number] Annual Exam - Pa p done 10/2022 - WNL Due for covid and tetanus thetein Not available 10/24/2023 07:22:44 Reason for Referral Plastic Surgeon Referral for Hypertrophy of breast Referring Physician: Yohannes Cannon, Family Medicine, Encounter Date: 10/28/2023 Problems Name Problem SNOMED Code Status Onset Date Resolution Date Notes Provider Name and Address Organization Details Recorded Time Insomnia 083722373 Active 2021 Problem Code: G47.00; Problem Code Type: ICD-10; Not Available [facility] 05:48:26 Anxiety disorder 953785759 Active 202111/07/19 22 - Comments only - Yohannes Cannon WRAPPING CLERK - Will continue to monitor, at this time seems most related to her work. Problem Code: F41.9; Problem Code Type: ICD-10; Not Available [facility] 3 05:48:26 Body mass index 25-29 - overweig ht 849927244 Active 2021 Problem Code: Z68.27; Problem Code Type: ICD-10; Not Available [facility] 3 05:48:27 Posttrau matic stress disorder 12016804 Active 2021 Problem Code: F43.10; Problem Code Type: ICD-10; Not Available [facility] 3 05:48:27 Recurren t acute tonsilli tis 112822483 Active 2021 Problem Code: J03.91; Problem Code Type: ICD-10; Not Available [facility] 3 05:48:27 Hypertro phy of breast 705537946 Active 2022 Problem Code: N62; Problem Code Type: ICD-10; Not Available [facility] 3 05:48:27 Adult health examinat ion Active 2022 Problem Code: Z00.00; Problem Code Type: ICD-10; Not Available [facility] 3 05:48:27 Acute pharyngi tis 329118730 Completed 202208/05/2022 Problem Code: J02.9; Problem Code Type: ICD-10; Not Available [facility] 3 05:48:27 Gastroes ophageal reflux disease without esophagi tis 847239221 Completed 202111/06/2021 Problem Code: K21.9; Problem Code Type: ICD-10; Not Available [facility] 3 05:48:27 Right Achilles tendinit is 90450337469 9102 Completed 202108/05/2022 Problem Code: M76.61; Problem Code Type: ICD-10; Not Available [facility] 3 05:48:27 History of clinical finding in subject 978344699 Completed 202111/06/2021 Problem Code: Z87.898; Problem Code Type: ICD-10; Not Available [facility] 3 05:48:28 Chest pain 09935565 Completed 202108/05/2022 Problem Code: R07.9; Problem Code Type: ICD-10; Not Available [facility] 3 05:48:28 [place] Completed 202112/13/2021 Problem Code: Z71.89; Problem Code Type: ICD-10; Not Available [facility] 3 05:48:28 Foot pain 76025817 Completed 202108/05/2022 Problem Code: M79.673; Problem Code Type: ICD-10; Not Available [facility] 3 05:48:28 Hand wart 346861038 Active [address], [place], [address] , [facility] 4 15:50:37 Notes:*Problem Name: Other s pecified abnormal uterine and vaginal bleeding *Problem Status: inactive *Comments: *Problem Code: N93.8 *Problem Code Type: ICD-10 *Note Date: 10/16/2021 Problem Notes Documentation Provider Name and Address Organization Details Recorded Time Gynecology Note : [facility] Clinic Visit PATIENT NAME: Kayla Hanna UNIT #: [id number] ADMITTING PROVIDER: Franca Dawn CNM ACCOUNT #: [id number] PRIMARY CARE PROVIDER: YOHANNES CANNON NP DATE OF ADMIT: 0 12/19/23 : 2001 Assessment Plan (1) Uses Depo-Provera as primary control method: depo provera injection provided today. RTO in 12 weeks for repeat depo provera. Orders Depo-Provera Injection (Office) Today Z30.42 - Encounter for surveillance of injectable contraceptive Plan Detail Follow Up: 12 Weeks (depo provera injection in 12 weeks. ) Total time on date of encounter, (tplw-ik-ukyp and non mawp-sa-qbms) (minutes): 15 Time was spent: reviewing prior notes and diagnostics, providing direct patient care, documenting today's visit and updating the EMR HPI Kayla is here for depoprovera injection. She has no concerns about depoporvera. She denies need for STI screening. Office Procedures Injections for Vaccines Risks and Benefits Explained Risks, benefits, alternatives, side effects contraindications reviewed with the patient/guardian. Given opportunity to ask questions.: Yes Office Meds Depo-Provera 150 mg/mL intramuscular suspension Performing Provider: Franca Dawn CNM Performing Location: [facility] Administered by: Jyoti Moran LPN on 12/19/23 15:39 Dose Route Admin Location Dispensed Lot Number Expiration Date NDC Man ufacturer 150 mg IM Right Gluteus 1 mL [id number] 09/18/25 35718-357-33 [employer] Intake Vital Signs 12/19/23 15:22 Height 5 ft 1 in Weight 180 lb 2 oz BMI 34.0 BP 110/72 Blood Pressure Location Lt brachial Position Sitting Pulse 78 Pulse Source Monitor Intake Visit Reasons: Depo-Provera Injection Nurse Note: * No bleeding, no pain, desires another injection; last injection 09/23/23; 12w3d Allergies Allergy/AdvReac Type Severity Reaction Status Date / Time No Known Allergies Allergy Verified 12/19/23 15:27 Home Medications ???Medication ???Instructions ???Recorded ???Confirmed ???Type medroxyprogesterone 150 mg/mL 150 mg IM [id number] #1 mL 04/08/23 12/19/23 Rx intramuscular syringe (Depo-Provera) lidocaine 4 % topical cream 1 applic topical QID PRN pain #15 08/14/23 12/19/23 Rx grams valacyclovir 1 gram tablet 1,000 mg PO BID 5 days #10 tabs 08/14/23 12/19/23 Rx (Valtrex) PFSH All Active Problems Bacterial vaginosis (Acute) Genital HSV (Acute) Uses Depo-Provera as primary control method (Acute) Anxiety (Chronic) Gastroesophageal reflux disease (Chronic) Heel pain (Chronic) Insomnia (Chronic) Chronic tonsillitis (Acute) Medical History Dysuria Possible exposure to STD Lesion of labia Contraception, generic surveillance Post-tonsillectomy hemorrhage Abnormal chest xray nodule resolved Recurrent tonsillitis Had eval with ENT- no indication for tonsillectomy at this point (10/27/20) Fracture of distal phalanx of left thumb (01/10/19) BMI 27.0-27.9,adult Premature Born at 34 weeks PTSD (post-traumatic stress disorder) Per pt. 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 Surgical History Hx of tonsillectomy 10/28/2022 Family History Mother Substance abuse Alcohol abuse Half-sibling Substance abuse Social History Smoking/Tobacco Use Status: Never Second Hand Exposure: No Smoking risk assessment performed?: Yes Alcohol Intake: current Alcohol Intake frequency: a few times a month Alcohol type: hard liquor Drug use: Never Substance use type: does not use Household members: family Housing: house Pets and animals: Yes Pets and animals: cat(s) and farm animals Current gender identity: female Seatbelt use: always Helmet use: Yes Helmet use: always Water heater temp set <120 deg: Yes Working smoke detector in home: Yes Fire extinguisher in home: Yes Carbon monox detector in home: Yes Firearms in home: Yes Firearms unloaded and locked: Yes Do you feel safe at home: Yes Do you feel safe in your relationship?: Yes Female Reproductive History Menstrual control method: progesterone injection History History 0 Para Hx # Term Pregnancies Multiple births Hx # Pregnancies Ectopic pregnancies AB induced Hx Number of Living Children AB spontaneous Questionnaire PHQ-2/PHQ-9 Depression Screening Depression screening performed: No [place]IRT Screen Brief Intervene Refer Treat Smoking/Tobacco Use Status: Never Quality Reporting Adult ([facility] 138/2/22/69/61/64/165) Depression screening performed: No Coding Diagnoses Uses Depo-Provera as primary control method Z78.9 cc: Dictated by: JEZ MELÉNDEZFRANCA Dictated: 12/19/23 Time: 152 Date: 12/19/23 1600 Date: Date: Transcribed Date: 12/19/23 Transcribed Time: 1520 By: CHRISTINA This is privileged, confidential information, intended only for the provider named. Any use or distribution by any person other than this provider is strictly prohibited. If you receive this report in error, please notify us immediately at [phone] and return the original report to us at the address above. Thank you. DENAE mota, [facility] 12/24/2023 14:28:38 Procedures Surgical History Date Name Laterality Status Provider Name and Address Organization Details Recorded Time Cryosurgery Warts/Skin Tags completed STALIN JOHNSON [address], [place], [address], [facility] 10/29/2023 15:50:29 Imaging Results None [...] Address Organization Details Last Updated DateTime 4 27418.9 8 g 96.7 [degF] 98 % 98 % 100 /min 104 mm[Hg] 70 mm[Hg] Alexandra Rodas RN [facility] 14:20:57 Social History Question Answer Notes LastModified by Organizat ion Details LastModified Time Tobacco Smoking Status Never Smoker Alexandra Rodas RN null, [facility] 10/28/2023 14:19:53 Would You Say That, In [...] Family History Nothing Reported Notes:*Problem: Mother Isidro kc abuse Alcohol Abuse Half- Sibling Substance Abuse Medical History No medical history recorded. Gynecological HistoryNo gynecological history recorded. Obstetrics History GPAL:G 0 P 0 0 0 0 Immunizations Vaccine Type Date Status Provider Name and Address Organization Details Recorded Time [facility] 12/29/2006 completed Not Available [facility] 05:34:38 MMR 01/26/2003 completed Not Available [facility] 05:34:38 DTaP, unspecified formulation 2001 completed Not Available [facility] 02/28/2023 05:34:38 DTaP, unspecified formulation 12/29/2006 completed Not Available [facility] 02/28/2023 05:34:38 DTaP, unspecified formulation 01/06/2002 completed Not Available [facility] 02/28/2023 05:34:38 DTaP, unspecified formulation 01/26/2003 completed Not Available [facility] 02/28/2023 05:34:38 DTaP, unspecified formulation 03/17/2002 completed Not Available [facility] 02/28/2023 05:34:38 meningococcal ACWY, unspecified formulation 09/30/2012 completed Not Available [facility] 02/28/2023 05:34:38 meningococcal ACWY, unspecified formulation 10/01/2018 completed Not Available [facility] 02/28/2023 05:34:38 Tdap 09/30/2012 completed Not Available [facility] 05:34:39 HPV, unspecified formulation 10/01/2013 completed Not Available [facility] 02/28/2023 05:34:39 HPV, unspecified formulation 10/04/2014 completed Not Available [facility] 02/28/2023 05:34:39 HPV, unspecified formulation 04/12/2015 completed Not Available [facility] 02/28/2023 05:34:39 Hib, unspecified formulation 2001 completed Not Available [facility] 02/28/2023 05:34:39 Hib, unspecified formulation 01/06/2002 completed Not Available [facility] 02/28/2023 05:34:39 Hib, unspecified formulation 01/26/2003 completed Not Available [facility] 02/28/2023 05:34:39 Hib, unspecified formulation 03/17/2002 completed Not Available [facility] 02/28/2023 05:34:39 varicella 09/14/2003 completed Not Available [facility] 05:34:39 varicella 01/04/2008 completed Not Available [facility] 05:34:39 SARS-COV-2 (COVID-19) vaccine, UNSPECIFIED 04/22/2021 completed Not Available [facility] 02/28/2023 05:34:39 SARS-COV-2 (COVID-19) vaccine, UNSPECIFIED 08/31/2020 completed Not Available [facility] 02/28/2023 05:34:39 SARS-COV-2 (COVID-19) vaccine, UNSPECIFIED 09/21/2020 completed Not Available [facility] 02/28/2023 05:34:40 pneumococcal polysaccharide PPV23 2001 completed Not Available [facility] 2022 05:34:40 pneumococcal polysaccharide PPV23 01/06/2002 completed Not Available [facility] 2022 05:34:40 pneumococcal polysaccharide PPV23 03/17/2002 completed Not Available [facility] 2022 05:34:40 Hep B, unspecified formulation 06/29/2002 completed Not Available [facility] 02/28/2023 05:34:40 Hep B, unspecified formulation 2001 completed Not Available [facility] 02/28/2023 05:34:40 Hep B, unspecified formulation 03/17/2002 completed Not Available [facility] 02/28/2023 05:34:40 Hep A, unspecified formulation 09/05/2015 completed Not Available [facility] 02/28/2023 05:34:40 Hep A, unspecified formulation 02/26/2017 completed Not Available [facility] 02/28/2023 05:34:40 influenza, unspecified formulation 01/18/2019 completed Not Available [facility] 02/28/2023 05:34:40 influenza, unspecified formulation 01/21/2013 completed Not Available [facility] 02/28/2023 05:34:40 influenza, unspecified formulation 01/28/2020 completed Not Available [facility] 02/28/2023 05:34:40 influenza, unspecified formulation 03/02/2018 completed Not Available [facility] 02/28/2023 05:34:40 influenza, unspecified formulation 03/27/2017 completed Not Available [facility] 02/28/2023 05:34:41 influenza, unspecified formulation 04/12/2015 completed Not Available [facility] 02/28/2023 05:34:41 influenza, unspecified formulation 04/13/2014 completed Not Available [facility] 02/28/2023 05:34:41 polio, unspecified formulation 2001 completed Not Available [facility] 02/28/2023 05:34:41 polio, unspecified formulation 12/29/2006 completed Not Available [facility] 02/28/2023 05:34:41 polio, unspecified formulation 01/06/2002 completed Not Available [facility] 02/28/2023 05:34:41 polio, unspecified formulation 01/26/2002 completed Not Available [facility] 02/28/2023 05:34:41 Past Encounters Encounter ID Performer Location Encounter Start Date Encounter Closed Date Diagnosis/Indication Diagnosis SNOMED-CT Code Diagnosis ICD10 Code [id number] STALIN JOHNSON [address] [address] 10/28/2023 13:56:40 10/28/2023 15:07:28 Hypertrophy of breast 699805251 N62 Hand wart 899932499 B07. 8 Adult [facility] th examination [id number] Z00.00 Health Concerns Section Related Observation LastModified by Organization Detai ls LastModified Time None Recorded Concern Status LastModified by Organization Details LastModified Time None Recorded Advance Directives Directive None Recorded Payers Encounter Date Sequence Insurance Name Policy Number Policy Schreiber Covered Member ID Schreiber Member ID Guarantor Name 10/28/2023 1 [place] [facility] [id number] Kayla Hanna [id number] Kayla Hanna Notes Date Note Type [...] She also would like a referral to [facility] for consideration of breast reduction. She states that she has chronic back pain that she attributes to breast size as well as difficulty with her close fitting correctly. She does note insomnia on intake paperwork however she reports that this is situational due to her sleeping environment. [address], [place], [address], [facility]. 10/29/2023 15:52:21 OBGyn Episode No OBEpisode recorded.
--- OUTSIDE RECORDS SUMMARY | 2023-12-24 20:45 | XMS_ITS | Clinical Summary ---
[place] [address] Care Team Providers Care Manager Database Name Role Phone Darlyn Cannon APRN Primary Care Provider [phone] Social History Tobacco Use Types Packs/Day Years Used Date Smoking Tobacco: Never Assessed Sex and Gender Information Value Date Recorded Sex Assigned at Not on file Gender Identity Not on file Sexual Orientation Not on file Plan of Treatment Health Maintenance Due Date Last Done Comments Chlamydia Screening 2016 HPV vaccine (1 - 3-dose series) 2016 HIV screen 09/07/2019 Hepatitis C Screening 09/07/2019 Hepatitis B vaccine (0-59 yrs) (1) 2020 Tdap adult 2020 Tetanus vaccine 2020 PAP Smear 2022 Covid-19 Vaccine (1 - 2022-24 season) 2023 Influenza (Flu) vaccine (1 o f 1 - Influenza standard series) 12/21/2023 Care Teams Manager Database Relationship Specialty Start Date End Date Darlyn Cannon APRN [address] [place] [address] PCP - General Family Medicine 10/31/22
--- OUTSIDE RECORDS SUMMARY | 2023-12-24 20:46 | XMS_ITS | Encounter Summary ---
Author Organization [facility] Address [address] [place] [address] Care Team Providers Care Linux Administrator Name Role Phone Unknown, Provider Primary Care Provider [phone] Encounter Details Date Type Department Care Team (Late st Contact Info) Description 01/31/2020 Lab Requisition [facility] Pathology & Laboratory Medicine - [address] [address] Outr Resulting Lab, Provider Social History Tobacco Use Types Packs/Day Years Used Date Smoking Tobacco: Never Assessed Sex and Gender Information Value Date Recorded Sex Assigned at Not on file Gender Identity Not on file Sexual Orientation Not on file documented as of this encounter Plan of Treatment Not on file documented as of this encounter Procedures Procedure Name Priority Date/Time Associated Diagnosis Comments CHLAMYDIA/N. GONORRHOEAE AMPLIFIED NUCLEIC ACID Routine 01/31/2020 10:45 EDT documented in this encounter Results * CHLAMYDIA/N. GONORRHOEAE AMPLIFIED RNA (01/31/2020 10:45 EDT) Neisseria gonorrhoeae Result Negative Negative 02/02/2020 8:41 EDT [facility] Chlamydia trachomatis Result Negative Negative 02/02/2020 8:41 EDT [facility] Urine URINE / Unknown 01/31/2020 1 0:45 EDT 01/31/2020 22:44 EDT Narrative [facility] - 02/02/2020 8:41 EDT A first catch urine specimen is acceptable for detection of Gonorrhea and Chlamydia, but might detect up to 10% fewer infections when compared with vaginal and endocervical swab samples. Provider Outr Resulting Lab MICROBIOLOGY - GENERAL ORDERABLES [facility] [address] [place] [address] documented in this encounter Visit Diagnoses Not on filedocumented in this encounter Care Teams Linux Administrator Relationship Specialty Start Date End Date Unknown, Provider, PCP - General 05/30/14 documented as of this encounter
--- OUTSIDE RECORDS SUMMARY | 2023-12-24 20:46 | XMS_ITS | Encounter Summary ---
Author Organization [facility] Address [address] [place] [address] Care Team Providers Care Traffic And Transport Planner Name Role Phone Unknown, Provider Primary Care Provider Encounter Details Date Type Department Care Team (Late st Contact Info) Description 05/18/2022 Lab Requisition [facility] Pathology & Laboratory Medicine - [address] [address] Outr Resulting Lab, Provider Social History Tobacco [...] Procedure Name Priority Date/Time Associated Diagnosis Comments ZZCOVID-19 TEST [facility] LAB PCR Today 05/18/2022 10:10 EST COVID-19 TESTING Routine 05/18/2022 10:1 0 EST documented in this encounter Results * COVID-19 TEST [facility] LAB PCR (05/18/2022 10:10 EST) Swab 05/18/2022 10:1 0 EST 05/19/2022 18:56 EST Provider Outr Resulting Lab MICROBIOLOGY - GENERAL ORDERABLES [facility] [address] [place] [address] * COVID-19 TESTING (05/18/2022 10:10 EST) COVID-19 rt-PCR Result Negative Negative 05/20/2022 13:18 EST [facility] Comment: This test has not been FDA cleared or approved. This test has been authorized by FDA under an EUA for use by authorized laboratories. This test has been authorized only for detection of nucleic acid from 2019-nCoV, not for any other viruses or pathogens. This test is only authorized for the duration of the declaration that circumstances exist justifying the authorization of emergency use of in vitro diagnostic tests for detection and/or diagnosis of 2019-nCoV under section 564(b)(1) of Act, 21 U.S.C ?? 360bbb-3(b) (1), unless the authorization is terminated or revoked sooner. Negative results do not preclude 2019-nCoV infection and should not be used as the sole basis for treatment or other patient management decisions. Negative results must be combined with clinical observations, patient history, and epidemiological information. Testing was performed using the kennedi SARS-CoV-2 assay ([employer] on the Kennedi 6800 System Performing Lab Kennedi 6800 [facility] Lab 05/20/2022 13:18 EST [facility] Swab 05/18/2022 10:1 0 EST 05/19/2022 18:56 EST Provider Outr Resulting Lab MICROBIOLOGY - GENERAL ORDERABLES [facility] [address] [place] [address] documented in this encounter Visit Diagnoses Not on filedocumented in this encounter Care Teams Traffic And Transport Planner Relationship Specialty Start Date End Date Unknown, Provider, PCP - General 05/30/14 documented as of this encounter
--- OUTSIDE RECORDS SUMMARY | 2023-12-24 20:46 | XMS_ITS | Encounter Summary ---
Author Organization [facility] Address [address] [place] [address] Care Team Providers Care Ear Specialist Name Role Phone Luisa Pulido MD Primary Care Provider [phone] Unknown, Provider Primary Care Provider [phone] Encounter Details Date Type Department Care Team (Late st Contact Info) Description 05/05/2005 Historic/Scan Encounter [facility] [address] [place] [address] [id number] Hayden Barnett MD [address] [place] [id number] Social History Tobacco Use Types Packs/Day Years Used Date Smoking Tobacco: Never Assessed Sex and Gender Information Value Date Recorded Sex Assigned at Not on file Gender Identity Not on file Sexual Orientation Not on file documented as of this encounter Plan of Treatment Not on file documented as of this encounter Visit Diagnoses Not on filedocumented in this encounter Care Teams Ear Specialist Relationship Specialty Start Date End Date Luisa Pulido MD [address] [place] [phone] PCP - General 07/04/09 05/29/14 Unknown, Provider, [address] [address] PCP - General 05/30/14 documented as of this encounter
--- OUTSIDE RECORDS SUMMARY | 2023-12-24 20:46 | XMS_ITS | Encounter Summary ---
Author Organization [facility] Address [address] [place] [address] Care Team Providers Care Asset Protection Manager Name Role Phone Luisa Pulido MD Primary Care Provider [phone] Unknown, Provider Primary Care Provider Encounter Details Date Type Department Care Team (Late st Contact Info) Description 01/04/2008 Historic/Scan Encounter [facility] [address] [place] [address] [phone] Raven Black MD [address] [place] [phone] Social History Tobacco Use Types Packs/Day Years Used Date Smoking Tobacco: Never Assessed Sex and Gender Information Value Date Recorded Sex Assigned at Not on file Gender Identity Not on file Sexual Orientation Not on file documented as of this encounter Plan of Treatment Not on file documented as of this encounter Visit Diagnoses Not on filedocumented in this encounter Care Teams Asset Protection Manager Relationship Specialty Start Date End Date Luisa Pulido MD [address] [place] [phone] PCP - General 07/04/09 05/29/14 Unknown, Provider, [address] [address] PCP - General 05/30/14 documented as of this encounter
--- OUTSIDE RECORDS SUMMARY | 2023-12-24 20:46 | XMS_ITS | Encounter Summary ---
Author Organization [facility] Address [address] [place] [address] Care Team Providers Care Concrete Grinder Operator Name Role Phone Unknown, Provider Primary Care Provider Encounter Details Date Type Department Care Team (Late st Contact Info) Description 08/15/2023 Lab Requisition [facility] Pathology & Laboratory Medicine - [address] [id number] Outr Resulting Lab, Provider Social History Tobacco [...] Comments CHLAMYDIA/N. GONORRHOEAE AMPLIFIED NUCLEIC ACID Routine 08/14/2023 15:15 EDT documented in this encounter Results * CHLAMYDIA/N. GONORRHOEAE AMPLIFIED RNA (08/14/2023 15:15 EDT) Neisseria gonorrhoeae Result Negative Negative 08/16/2023 12:49 EDT [facility] Chlamydia trachomatis Result Negative Negative 08/16/2023 12:49 EDT [facility] Swab VAGINAL STRUCTURE / Unknown 08/14/2023 15:15 EDT 08/15/2023 18:06 EDT Provider Outr Resulting Lab MICROBIOLOGY - GENERAL ORDERABLES [facility] [address] [place] [address] documented in this encounter Visit Diagnoses Not on filedocumented in this encounter Care Teams Concrete Grinder Operator Relationship Specialty Start Date End Date Unknown, Provider, PCP - General 05/30/14 documented as of this encounter
--- OUTSIDE RECORDS SUMMARY | 2023-12-24 20:46 | XMS_ITS | Encounter Summary ---
Author Organization [facility] Address [address] [place] [address] Care Team Providers Care Atmospheric Sciences Professor Name Role Phone Unknown, Provider Primary Care Provider Encounter Details Date Type Department Care Team (Late st Contact Info) Description 05/12/2021 Lab Requisition [facility] Pathology & Laboratory Medicine - [address] [id number] Outr Resulting Lab, Provider Social History Tobacco [...] Priority Date/Time Associated Diagnosis Comments ZZCOVID-19 TEST [facility] LAB PCR Today 05/11/2021 23:43 EST COVID-19 TESTING Routine 05/11/2021 23:4 3 EST documented in this encounter Results * COVID-19 TEST [facility] PCR (05/11/2021 23:43 EST) Swab 05/11/2021 23:4 3 EST 05/12/2021 22:44 EST Provider Outr Resulting Lab MICROBIOLOGY - GENERAL ORDERABLES [facility] [address] [place] [address] * COVID-19 TESTING (05/11/2021 23:43 EST) COVID-19 rt-PCR Result Negative Negative 05/13/2021 15:19 EST [facility] Comment: This test has not [...] was performed using the kennedi SARS-CoV-2 assay ([employer] on the Kennedi 6800 System Performing Lab Kennedi 6800 [facility] Lab 05/13/2021 15:19 EST [facility] Swab 05/11/2021 23:4 3 EST 05/12/2021 22:44 EST Provider Outr Resulting Lab MICROBIOLOGY - GENERAL ORDERABLES [facility] [address] [place] [address] documented in this encounter Visit Diagnoses Not on filedocumented in this encounter Care Teams Atmospheric Sciences Professor Relationship Specialty Start Date End Date Unknown, Provider, PCP - General 05/30/14 documented as of this encounter
--- OUTSIDE RECORDS SUMMARY | 2023-12-24 20:46 | XMS_ITS | Encounter Summary ---
Author Organization [facility] Address [address] [place] [address] Care Team Providers Care Medical Office Technology Instructor Name Role Phone Luisa Pulido MD Primary Care Provider [phone] Unknown, Provider Primary Care Provider [phone] Encounter Details Date Type Department Care Team (Late st Contact Info) Description 12/29/2006 Historic/Scan Encounter [facility] [address] [place] [address] [phone] Raven Black MD [address] [place] [address] [phone] Social History Tobacco Use Types Packs/Day Years Used Date Smoking Tobacco: Never Assessed Sex and Gender Information Value Date Recorded Sex Assigned at Not on file Gender Identity Not on file Sexual Orientation Not on file documented as of this encounter Plan of Treatment Not on file documented as of this encounter Visit Diagnoses Not on filedocumented in this encounter Care Teams Medical Office Technology Instructor Relationship Specialty Start Date End Date Luisa Pulido MD [address] [place] [phone] PCP - General 07/04/09 05/29/14 Unknown, Provider, [address] [phone] PCP - General 05/30/14 documented as of this encounter
--- OUTSIDE RECORDS SUMMARY | 2023-12-24 20:46 | XMS_ITS | Encounter Summary ---
Author Organization [facility] Address [address] [place] [address] Care Team Providers Care Vision Rehabilitation Therapist Name Role Phone Luisa Pulido MD Primary Care Provider [phone] Unknown, Provider Primary Care Provider [phone] Encounter Details Date Type Department Care Team (Late st Contact Info) Description 2001 Historic/Scan Encounter [facility] [address] [place] [address] [phone] Temi Francis MD [address] [place], [place] [phone] Social History Tobacco Use Types Packs/Day Years Used Date Smoking Tobacco: Never Assessed Sex and Gender Information Value Date Recorded Sex Assigned at Not on file Gender Identity Not on file Sexual Orientation Not on file documented as of this encounter Plan of Treatment Not on file documented as of this encounter Visit Diagnoses Not on filedocumented in this encounter Care Teams Vision Rehabilitation Therapist Relationship Specialty Start Date End Date Luisa Pulido MD [address] [place] [address] [phone] PCP - General 07/04/09 05/29/14 Unknown, Provider, [address] [phone] PCP - General 05/30/14 documented as of this encounter
--- OUTSIDE RECORDS SUMMARY | 2023-12-24 20:46 | XMS_ITS | Encounter Summary ---
Author Organization [facility] Address [address] [place] [address] Care Team Providers Care Proof Press Operator Name Role Phone Unknown, Provider Primary Care Provider [phone] Encounter Details Date Type Department Care Team (Late st Contact Info) Description 06/22/2020 Lab Requisition [facility] Pathology & Laboratory Medicine - [address] [address] Outr Resulting Lab, Provider Social History Tobacco [...] Priority Date/Time Associated Diagnosis Comments ZZCOVID-19 TEST [facility] LAB PCR Today 06/22/2020 8:24 EST COVID-19 TESTING Routine 06/22/2020 8:24 EST documented in this encounter Results * COVID-19 TEST [facility] LAB PCR (06/22/2020 8:24 EST) Swab ENTIRE NASOPHARYNX / Unknown 06/22/2020 8:24 EST 06/22/2020 16:43 EST Provider Outr Resulting Lab MICROBIOLOGY - GENERAL ORDERABLES [facility] [address] [place] [address] * COVID-19 TESTING (06/22/2020 8:24 EST) COVID-19 rt-PCR Result Negative Negative 06/23/2020 14:35 EST [facility] Comment: This test has not [...] clinical observations, patient history, and epidemiological information. This test was developed and its performance characteristics determined by [facility]. It has not been cleared or approved by the US Food and Drug Administration. FDA does not require this test to go through premarket FDA review. This test is used for clinical purposes. It should not be regarded as investigational or for research. This laboratory is certified under the Clinical Laboratory Improvement Amendments (CLIA) as qualified to perform high complexity clinical laboratory testing. This test is based on the FORMER[facility] NAMED [facility] COVID-19 Emergency Use Authorization (EUA) assay, with minor modification as defined by the FDA Performed on the [employer] 7 Flex RT-PCR System. Performing Lab [facility] Lab 06/23/2020 14:35 EST [facility] Swab 06/22/2020 8:24 EST 06/22/2020 16:43 EST Provider Outr Resulting Lab MICROBIOLOGY - GENERAL ORDERABLES [facility] [address] [place] [address] documented in this encounter Visit Diagnoses Not on filedocumented in this encounter Care Teams Proof Press Operator Relationship Specialty Start Date End Date Unknown, Provider, PCP - General 05/30/14 documented as of this encounter
--- OUTSIDE RECORDS SUMMARY | 2023-12-24 20:46 | XMS_ITS | Encounter Summary ---
Author Organization [facility] Address [address] [place] [address] Care Team Providers Care Grain Manager Name Role Phone Unknown, Provider Primary Care Provider Encounter Details Date Type Department Care Team (Late st Contact Info) Description 11/05/2022 Lab Requisition [facility] Pathology & Laboratory Medicine - [address] [address] Teresa Ardon, DISPLAYER MERCHANDISE [address] [place] [phone] Encounter for other general examination Social History Tobacco Use Types Packs/Day Years Used Date Smoking Tobacco: Never Assessed Sex and Gender Information Value Date Recorded Sex Assigned at Not on file Gender Identity Not on file Sexual Orientation Not on file documented as of this encounter Plan of Treatment Not on file documented as of this encounter Procedures Procedure Name Priority Date/Time Associated Diagnosis Comments PAP TEST Today 11/04/2022 15:30 EDT Encounter for other general examination documented in this encounter Results * PAP TEST (11/04/2022 15:30 EDT) Specimens A. Cervix and/or Endocervix , ThinPrep Imaging System with Manual Evaluation 11/12/2022 12:08 T [facility] Specimen Adequacy Satisfactory for Evaluation - transformation zone component present 11/12/2022 12:08 EDT [facility] General Categorization Negative for intraepithelial lesion or malignancy 11/12/2022 12:08 T [facility] Attestation . 11/12/2022 12:08 EDT [facility] at 1208 Clinical History SEE BELOW 11/13/19 12:08 EDT [facility] Performing Lab [facility] 11/12/2022 12:08 EDT [facility] Scanned Images 11/12/2022 12:08 EDT [facility] Papanicolaou smear specimen (specimen) CERVIX UTERI STRUCTURE / Unknown 11/04/2022 15:30 EDT 11/05/2022 13:27 EDT Teresa Ardon APRN PATHOLOGY ORDERAB LES [facility] [address] [place] [address] documented in this encounter Visit Diagnoses Diagnosis Encounter for other general examination documented in this encounter Care Teams Grain Manager Relationship Specialty Start Date End Date Unknown, Provider, PCP - General 05/30/14 documented as of this encounter
--- OUTSIDE RECORDS SUMMARY | 2023-12-24 20:46 | XMS_ITS | Encounter Summary ---
Author Organization [facility] Address [address] [place] [address] Care Team Providers Care Crop Grain Or Livestock Farm Manager Name Role Phone Unknown, Provider Primary Care Provider [phone] Encounter Details Date Type Department Care Team (Late st Contact Info) Description 03/29/2021 Lab Requisition [facility] Pathology & Laboratory Medicine - [address] [phone] Outr Resulting Lab, Provider Social History Tobacco [...] Comments CHLAMYDIA/N. GONORRHOEAE AMPLIFIED NUCLEIC ACID Routine 03/29/2021 8:40 EST documented in this encounter Results * CHLAMYDIA/N. GONORRHOEAE AMPLIFIED RNA (03/29/2021 8:40 EST) Neisseria gonorrhoeae Result Negative Negative 04/01/2021 16:04 EST [facility] Chlamydia trachomatis Result Negative Negative 04/01/2021 16:04 EST [facility] Urine URINE / Unknown 03/29/2021 8 :40 EST 03/29/2021 21:47 EST Narrative [facility] - 04/01/2021 16:04 EST A first catch urine specimen is acceptable for detection of Gonorrhea and Chlamydia, but might detect up to 10% fewer infections when compared with vaginal and endocervical swab samples. Provider Outr Resulting Lab MICROBIOLOGY - GENERAL ORDERABLES [facility] [address] [place] [address] documented in this encounter Visit Diagnoses Not on filedocumented in this encounter Care Teams Crop Grain Or Livestock Farm Manager Relationship Specialty Start Date End Date Unknown, Provider, PCP - General 05/30/14 documented as of this encounter
--- OUTSIDE RECORDS SUMMARY | 2023-12-24 20:46 | XMS_ITS | Encounter Summary ---
Author Organization [facility] Address [address] [place] [address] Care Team Providers Care Shield Cleaner Name Role Phone Luisa Pulido MD Primary Care Provider [phone], Provider Primary Care Provider [phone] Encounter Details Date Type Department Care Team (Late st Contact Info) Description 07/04/2009 Historic/Scan Encounter [facility] [address] [place] [address] [phone] Rehana Harris, RUBBER STAMP MAKER 1 [facility] [address] [place] [phone] Social History Tobacco Use Types Packs/Day Years Used Date Smoking Tobacco: Never Assessed Sex and Gender Information Value Date Recorded Sex Assigned at Not on file Gender Identity Not on file Sexual Orientation Not on file documented as of this encounter Plan of Treatment Not on file documented as of this encounter Visit Diagnoses Not on filedocumented in this encounter Care Teams Shield Cleaner Relationship Specialty Start Date End Date Luisa Pulido MD [address] [place] [phone] PCP - General 07/04/09 05/29/14 Unknown, Provider, [address] [phone] PCP - General 05/30/14 documented as of this encounter
--- OUTSIDE RECORDS SUMMARY | 2023-12-24 20:46 | XMS_ITS | Encounter Summary ---
Author Organization [facility] Address [address] [place] [address] Care Team Providers Care Dog Or Animal Sitter Name Role Phone Luisa Pulido MD Primary Care Provider Unknown, Provider Primary Care Provider [phone] Encounter Details Date Type Department Care Team (Late st Contact Info) Description 10/24/2005 Historic/Scan Encounter [facility] [address] [place] [address] [phone] Michael Galarza MD [address] [place] [address] [address] [place] [phone] Social History Tobacco Use Types Packs/Day Years Used Date Smoking Tobacco: Never Assessed Sex and Gender Information Value Date Recorded Sex Assigned at Not on file Gender Identity Not on file Sexual Orientation Not on file documented as of this encounter Plan of Treatment Not on file documented as of this encounter Visit Diagnoses Not on filedocumented in this encounter Care Teams Dog Or Animal Sitter Relationship Specialty Start Date End Date Luisa Pulido MD [address] [place] [phone] PCP - General 07/04/09 05/29/14 Unknown, Provider, [address] [phone] PCP - General 05/30/14 documented as of this encounter
--- OUTSIDE RECORDS SUMMARY | 2023-12-24 20:46 | XMS_ITS | Encounter Summary ---
Author Organization [facility] Address [address] [place] [address] Care Team Providers Care Meeting Coordinator Name Role Phone Unknown, Provider Primary Care Provider [phone] Encounter Details Date Type Department Care Team (Late st Contact Info) Description 08/15/2023 Lab Requisition [facility] Pathology & Laboratory Medicine - [address] [phone] Outr Resulting Lab, Provider Social History Tobacco [...] Procedure Name Priority Date/Time Associated Diagnosis Comments HSV (HERPES SIMPLEX VIRUS) MOLECULAR DETECTION, PCR Routine 08/14/2023 15:15 EDT documented in this encounter Results * (ABNORMAL) HSV (HERPES SIMPLEX VIRUS) MOLECULAR DETECTION, PCR (08/14/2023 15:15 EDT) Herpes Simplex Virus Molecular Detection 1, PCR Positive(A) Negative 08/16/2023 13:53 EDT [facility] Herpes Simplex Virus Molecular Detection 2, PCR Negative Negative 08/16/2023 13:53 EDT [facility] Swab GENITAL LABIUM STRUCTURE / Unknown 08/14/2023 15:15 EDT 08/15/2023 18:05 EDT Provider Outr Resulting Lab MICROBIOLOGY - GENERAL ORDERABLES [facility] [address] [place] [address] documented in this encounter Visit Diagnoses Not on filedocumented in this encounter Care Teams Meeting Coordinator Relationship Specialty Start Date End Date Unknown, Provider, PCP - General 05/30/14 documented as of this encounter
--- OUTSIDE RECORDS SUMMARY | 2023-12-24 20:46 | XMS_ITS | Encounter Summary ---
Author Organization [facility] Address [address] [place] [address] Care Team Providers Care Pull Tab Dealer Name Role Phone Unknown, Provider Primary Care Provider [phone] Encounter Details Date Type Department Care Team (Late st Contact Info) Description 10/28/[address] [facility] Pathology & Laboratory Medicine - [address] [address] Michael Cuellar MD [address] [place] [id number] Encounter for other general examination Social History [...] Procedure Name Priority Date/Time Associated Diagnosis Comments SURGICAL PATHOLOGY Today 10/28/2022 10 :58 EDT Encounter for other general examination documented in this encounter Results * SURGICAL PATHOLOGY (10/28/2022 10:58 EDT) Note to Patient The following pathology results have been interpreted by your pathologist and may be available to you before your health provider has had the opportunity to review them. Please allow time for your provider to receive these results and explore management options, if applicable. 10/31/2022 9:59 EDT [facility] Final Diagnosis A. TONSIL, RIGHT, TONSILLECTOMY: - Reactive lymphoid hyperplasia. B. TONSIL, LEFT, TONSILLECTOMY: - Reactive lymphoid hyperplasia. 10/31/2022 9:59 T [facility] Attestation There was significant resident/fellow involvement in the diagnostic evaluation of this case. By the signature below, the attending physician certifies that they have personally conducted a gross and/or microscopic examination of the described specimens and rendered or confirmed the above diagnosis. 10/31/2022 9:59 T [facility] at 0959 Clinical History Chronic tonsillitis 10/31/2022 9:59 EDT [facility] Gross Description A. Received in formalin, labelled with proper patient identification (initials F, A) and right tonsil is a palatine tonsil (2.8 x 2.6 x 1.2 cm). The mucosa is smooth and glistening with prominent crypts. Serial sections reveal lobular homogeneous tissue without abnormality. A home furnishings sales representative section is submitted as A1. B. Received in formalin, labelled with proper patient identification (initials F, A) and left tonsil is a palatine tonsil (3.9 x 2.6 x 1.6 cm). The mucosa is smooth and glistening with prominent crypts. Serial sections reveal lobular homogeneous tissue without abnormality. A home furnishings sales representative section is submitted as B1. SHANI BRISCOE MD PhD 10/29/2022 10:52 10/31/2022 9:59 EDT [facility] Resident/Pawel w: Shani Briscoe MD PhD 10/31/2022 9:59 T [facility] Performing Lab [facility] 10/31/2022 9:59 T [facility] Scanned Images 10/31/2022 9:59 T [facility] Tissue SPECIMEN FROM TONSIL / Unknown 10/28/2022 10:58 EDT 10/28/2022 21:01 EDT Tissue specimen (specimen) SPECIMEN FROM TONSIL / Unknown 10/28/2022 10:58 EDT 10/28/2022 21:01 EDT Michael Cuellar MD PATHOLOGY ORDERABLES [facility] [address] [place] [address] documented in this encounter Visit Diagnoses Diagnosis Encounter for other general examination documented in this encounter Care Teams Pull Tab Dealer Relationship Specialty Start Date End Date Unknown, Provider, PCP - General 05/30/14 documented as of this encounter
--- OUTSIDE RECORDS SUMMARY | 2023-12-24 20:46 | XMS_ITS | Encounter Summary ---
Author Organization [facility] Address [address] [place] [address] Care Team Providers Care Instrumental Musician Name Role Phone Luisa Pulido MD Primary Care Provider [phone] Unknown, Provider Primary Care Provider Encounter Details Date Type Department Care Team (Late st Contact Info) Description 08/04/2009 Historic/Scan Encounter [facility] [address] [place] [address] [phone] Rehana Harris, STAFF RADIOLOGIST 1 [facility] [address] [place] [phone] Social History Tobacco Use Types Packs/Day Years Used Date Smoking Tobacco: Never Assessed Sex and Gender Information Value Date Recorded Sex Assigned at Not on file Gender Identity Not on file Sexual Orientation Not on file documented as of this encounter Plan of Treatment Not on file documented as of this encounter Visit Diagnoses Not on filedocumented in this encounter Care Teams Instrumental Musician Relationship Specialty Start Date End Date Luisa Pulido MD [address] [place] [phone] PCP - General 07/04/09 05/29/14 Unknown, Provider, [address] [phone] PCP - General 05/30/14 documented as of this encounter
--- OUTSIDE RECORDS SUMMARY | 2023-12-24 20:46 | XMS_ITS | Encounter Summary ---
Author Organization [facility] Address [address] [place] [address] Care Team Providers Care Mason Apprentice Name Role Phone Luisa Pulido MD Primary Care Provider Unknown, Provider Primary Care Provider [phone] Encounter Details Date Type Department Care Team (Late st Contact Info) Description 06/04/2005 Historic/Scan Encounter [facility] [address] [place] [address] [phone] Raven Black MD [address] [place] [phone] Social History Tobacco Use Types Packs/Day Years Used Date Smoking Tobacco: Never Assessed Sex and Gender Information Value Date Recorded Sex Assigned at Not on file Gender Identity Not on file Sexual Orientation Not on file documented as of this encounter Plan of Treatment Not on file documented as of this encounter Visit Diagnoses Not on filedocumented in this encounter Care Teams Mason Apprentice Relationship Specialty Start Date End Date Luisa Pulido MD [address] [place] [phone] PCP - General 07/04/09 05/29/14 Unknown, Provider, [address] [phone] PCP - General 05/30/14 documented as of this encounter
--- OUTSIDE RECORDS SUMMARY | 2023-12-24 20:46 | XMS_ITS | Encounter Summary ---
Author Organization [facility] Address [address] [place] [address] Care Team Providers Care Faculty Dean Name Role Phone Luisa Pulido MD Primary Care Provider [phone] Unknown, Provider Primary Care Provider Encounter Details Date Type Department Care Team (Late st Contact Info) Description 11/26/2002 Historic/Scan Encounter [facility] Emergency Department - [address] [id number] Edelmira Ramirez MD Social History Tobacco Use Types Packs/Day Years Used Date Smoking Tobacco: Never Assessed Sex and Gender Information Value Date Recorded Sex Assigned at Not on file Gender Identity Not on file Sexual Orientation Not on file documented as of this encounter Plan of Treatment Not on file documented as of this encounter Visit Diagnoses Not on filedocumented in this encounter Care Teams Faculty Dean Relationship Specialty Start Date End Date Luisa Pulido MD [address] [place] [phone] PCP - General 07/04/09 05/29/14 Unknown, Provider, [address] [place] [phone] PCP - General 05/30/14 documented as of this encounter
--- NOTE | 2023-12-24 21:21 | ED.GENADUL_ITS ---
Discharge Plan Disposition Patient Disposition: Against Medical Advice Condition: Stable Discharge Details Clinical Impression: Pharyngitis Primary Care Provider: Darlyn Cannon ED Provider: Howard Mcgovern Home Meds and New Rx's Prescriptions: New ketorolac 10 mg tablet 10 mg PO QID PRN5 Days Qty: 16 0RF Rx Instructions: maximum total duration of 5 days from all oral, intranasal, or parenteral formulations Continued medroxyprogesterone [Depo-Provera] 150 mg/mL syringe 150 mg IM [id number] Qty: 1 3RF lidocaine 4 % cream 1 applic topical QID PRN (Reason: pain) Qty: 15 1RF Rx Instructions: apply thi layer to affected area up to 4x/day as needed Discharge Instructions Instructions: Dexamethasone (Systemic), Ketorolac (Systemic), Sore Throat, Adult ED Additional Instructions: You were seen in the emergency department for your dysphagia and sore throat almost 8 weeks after getting your tonsils and adenoids removed, it appears there may be some glandular granular tissue in your right oropharynx, we discussed possible need for CT neck this evening which she decided against which I think is reasonable as you do not have any vocal changes, neck stiffness, inability to open or close your jaw or excessive drooling. We did provide you with Toradol to go, as well as a dose of dexamethasone to take in the morning so that you are not up all night due to side effects of steroids. Please call Dr. Cuellar's office tomorrow morning for follow-up, please return to the emergency department for CT neck with contrast as we discussed for any of the worrying symptoms we discussed like vocal changes, decrease gentle range of motion, neck stiffness, increasing fever, inability to swallow, excessive drooling. Due to the avoidance of CT we are not ruling out possible peritonsillar abscess so you are signing out AGAINST MEDICAL ADVICE due to the risks of undiagnosed peritonsillar abscess but I do think you will have time to follow-up but please return for any emergent concerns prior to seeing ENT. Referrals: [facility] [Provider Group] Darlyn Cannon [Primary Care Provider] - Discharge Data Discharge Date/Time-TO BE ENTERED AT DEPARTURE: 12/24/23 22:30 HPI General Date/Time Provider Initiated Documentation: 12/24/23 20:14 . HPI Narrative: 23 year-old female presents to ED today by POV/ambulating with her father with a chief complaint of sore throat R sided, pain in R tonsillar area with onset over the past couple days- had her tonsils and adenoids removed in late September/early October. Quality described as R sided sore throat, no radiation to trismus, vocal changes, excessive drooling, inability to tolerate PO intake, fever, cough, URI symptoms. Severity is described as moderate. Palliating factors include nothing specific attempted. Provoking factors include nothing specific. Events leading up to the incident/Associated Symptoms: Patient had procedure performed by Dr. Cuellar. Patient not anticoagulated. Related Data Home Medications ?Medication ?Instructions ?Recorded ?Confirmed medroxyprogesterone 150 mg/mL 150 mg IM [id number] #1 mL 04/08/23 12/24/23 intramuscular syringe (Depo-Provera) lidocaine 4 % topical cream 1 applic topical QID PRN pain #15 08/14/23 12/24/23 grams ketorolac 10 mg tablet 10 mg PO QID PRN 5 days #16 tabs 12/24/23 Previous Rx's ?Medication ?Instructions ?Recorded medroxyprogesterone 150 mg/mL 150 mg IM [id number] #1 mL 04/08/23 intramuscular syringe (Depo-Provera) lidocaine 4 % topical cream 1 applic topical QID PRN pain #15 08/14/23 grams ketorolac 10 mg tablet 10 mg PO QID PRN 5 days #16 tabs 12/24/23 Allergies Allergy/AdvReac Type Severity Reaction Status Date / Time No Known Allergies Allergy Verified 12/24/23 20:12 General Stated Complaint: RespSymp JESUS: 4 Review of Systems All systems reviewed & are unremarkable except as noted in HPI and below Exam Narrative Exam Narrative: GENERAL APPEARANCE: Well-nourished, non-toxic, awake and alert, atraumatic, no acute distress. SKIN: Warm, pink, dry, intact, without rashes/lesions/ulcerations. HEAD: Normocephalic, atraumatic, normal hair distribution for gender/age. EYES: Normal conjunctiva, no exudates on lids/lashes. ENT: Nares patent, no circumoral cyanosis, no facial swelling, uvula midline, some glandular or granular tissue building up at the inferior aspect of the right tonsillar pillar suspect possible tonsillar partial regrowth, no trismus or vocal changes, managing secretions well, no tonsillar lymph node swelling, no neck stiffness NECK: Supple, trachea midline, painless cervical ROM. LUNGS/CHEST: Non-labored respirations, normal A/P diameter, symmetrical expansion, no chest wall deformity HEART (CV/PV): No peripheral edema, no JVD. ABDOMEN: Soft, non-distended, no guarding. MSK: Normal ROM, no swelling/deformity to bilateral UEs or LEs, moving all extremities without weakness, no cyanosis, spine midline without tenderness, normal curvature. NEURO: Mental Status AAOx4 - alert to person, place, time, events No facial droop, no forehead involvement. Motor: No focal weakness - strength 5/5 in bilateral UEs and L Es, proximal and distal, symmetric. Sensory: sensation intact to light touch globally. Gait normal: patient ambulated without ataxia into ED room. PSYCH: euthymic, cooperative, pleasant, appropriate speech Course Vital Signs Vital signs: Vital Signs Temperature 36.6 C 12/24/23 20:10 Pulse 94 H 12/24/23 20:10 Respiratory Rate 18 12/24/23 20:10 Blood Pressure 115/80 12/24/23 20:10 Pulse Oximetry 96 12/24/23 20:10 Temperature 36.6 C 12/24/23 20:10 Temperature Source Temporal Artery Scan 12/24/23 20:10 Pulse 94 H 12/24/23 20:10 Respiratory Rate 18 12/24/23 20:10 Respiratory Effort Normal, Non-Labored 12/24/23 20:42 Respiratory Depth Normal 12/24/23 20:42 Blood Pressure 115/80 12/24/23 20:10 Blood Pressure Position Sitting 12/24/23 20:10 Pulse Oximetry 96 12/24/23 20:10 Oxygen Delivery Method Room Air 12/24/23 20:10 Oxygen Flow Rate 0 12/24/23 20:10 Pain Level 6 12/24/23 20:10 Medical Decision Making This dictation utilizes [id number] dictation software and may contain unedited grammatical errors. 23 year-old female presents to ED today by POV/ambulating with her father with a chief complaint of sore throat R sided, pain in R tonsillar area with onset over the past couple days- had her tonsils and adenoids removed in late September/early October. Quality described as R sided sore throat, no radiation to trismus, vocal changes, excessive drooling, inability to tolerate PO intake, fever, cough, URI symptoms. Severity is described as moderate. Palliating factors include nothing specific attempted. Provoking factors include nothing specific. Events leading up to the incident/Associated Symptoms: Patient had procedure performed by Dr. Cuellar. Patients' medical history: [ ]. Family and social history: [ ]. Pertinent exam findings / vital signs include swollen right tonsillar area with some glandular or granular tissue seen at the inferior edge of the tonsillar pi llar on the right, uvula midline, no trismus, no vocal changes, managing secretions well, no significant cervical lymphadenopathy. Differential / pathologies of concern include granulation tissue, tonsillar regrowth, less likely abscess, strep pharyngitis. Diagnostic studies of: -Rapid Strep- negative. -Discussed CT Neck and basic labs - patient would prefer to follow-up with ENT if possible, stressed this would be against standard workup and against medical advice Interventions of: -Provided ketorlac Rx, dose of dexamethasone to take tomorrow to avoid sleep problems tonight- recommend close F/u with ENT, but strict return criteria for worrisome symptoms discussed at length [employer]OR [employer] considerations. Findings not consistent with [employer] at this time, but patient leaving AMA- didnt want needle puncture for IV and hours long stay for CT, against medical advice- strep negative. Disposition of Pharyngitis. Patient verbalized understanding of the plan and return to ED criteria and engaged in shared decision making. Medical Records Medical records reviewed: Yes I reviewed the patient's medical records. Lab Data Lab results reviewed: Yes I reviewed the patient's lab results. Lab results narrative: POC Strep negative, Cx pending Quality:SDOH Health Related Social Needs: No Data to Display PFSH All Active Problems (Updated 12/24/23 @ 22:13 by AUBREE Gann) Pharyngitis (Acute) Bacterial vaginosis (Acute) Genital HSV (Acute) Uses Depo-Provera as primary control method (Acute) Anxiety (Chronic) Gastroesophageal reflux disease (Chronic) Heel pain (Chronic) Insomnia (Chronic) Chronic tonsillitis (Acute) Medical History Dysuria Possible exposure to STD Lesion of labia Contraception, generic surveillance Post-tonsillectomy hemorrhage Abnormal chest xray nodule resolved Recurrent tonsillitis Had eval with ENT- no indication for tonsillectomy at this point (10/27/20) Fracture of distal phalanx of left thumb (01/10/19) BMI 27.0-27.9,adult Premature Born at 34 weeks PTSD (post-traumatic stress disorder) Per pt. 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 Surgical History Hx of tonsillectomy 10/28/2022 Family History Mother Substance abuse Alcohol abuse Half-sibling Substance abuse Social History Smoking/Tobacco Use Status: Never Second Hand Exposure: No Smoking risk assessment performed?: Yes Alcohol Intake: current Alcohol Intake frequency: a few times a month Alcohol type: hard liquor Drug use: Never Substance use type: does not use Household members: family Housing: house Pets and animals: Yes Pets and animals: cat(s) and farm animals Current gender identity: female Seatbelt use: always Helmet use: Yes Helmet use: always Water heater temp set <120 deg: Yes Working smoke detector in home: Yes Fire extinguisher in home: Yes Carbon monox detector in home: Yes Firearms in home: Yes Firearms unloaded and locked: Yes Do you feel safe at home: Yes Do you feel safe in your relationship?: Yes Female Reproductive History Menstrual control method: progesterone injection History History 0 Para Hx # Term Pregnancies Multiple births Hx # Pregnancies Ectopic pregnancies AB induced Hx Number of Living Children AB spontaneous
[2023-12-24 22:30] VITALS: BP 103/77; PULSE 90; RESP 13; TEMP 36.8; O2SAT 99
[2023-12-24] MEDS: Dexamethasone 10 MG/ML VIAL IVP (22:33)
[2023-12-24] MEDS: Ketorolac 10 MG TAB 40 MG PO (22:33)
== END 2023-12-24 22:30 | disposition left against medical advice (07) ==
PROVIDERS: Emergency Provider Physician Assistant; PCP Nurse Practitioner Family
DX: J02.9 Acute pharyngitis, unspecified (principal); Z98.890 Other specified postprocedural states; Z53.29 Procedure and treatment not carried out because of patient's decision for other reasons
CPT/HCPCS: 96374; 99284; 87081; 99283; J1100

== ENCOUNTER 2024-05-11 21:48 | Emergency (ER) | payer BC, SELFPAY ==
[2024-05-11 21:51] VITALS: BP 129/88; PULSE 87; RESP 18; TEMP 36.4; O2SAT 98
--- NOTE | 2024-05-11 22:04 | ED.GENADUL_ITS ---
Discharge Plan Disposition Patient Disposition: Home Condition: Stable Discharge Details Clinical Impression: Depression Primary Care Provider: Darlyn Cannon ED Provider: Elaine Doyle Home Meds and New Rx's Prescriptions: No Action medroxyprogesterone [Depo-Provera] 150 mg/mL syringe 150 mg IM [id number] Qty: 1 3RF Discharge Instructions Instructions: Depression, Adult ED Additional Instructions: Please follow-up as discussed by [facility] human services. Please follow the safety plan. Return to the ER for any worsening symptoms, thoughts of harming yourself or others or any concerns. Follow up with primary care provider in 3-5 days. Return to ED sooner if any worsening or concerns. Referrals: [facility] [Provider Group] - 3 days Discharge Data Discharge Date/Time-TO BE ENTERED AT DEPARTURE: 05/11/24 23:22 HPI General Mode of arrival: ambulatory . Date/Time Provider Initiated Documentation: 05/11/24 21:50 . Limitations to Documentation: no limitations . Information obtained by: patient, RN notes reviewed and old records reviewed . HPI Narrative: 23-year-old female seen by her mother with a chief complaint of crying uncontrollably over the last week or 2 and depression. She denies any suicidal ideation or homicidal ideation. She has not drink alcohol in the last couple weeks denies any drugs does not appear to be under the influence at this time. No significant psychiatric history. Other than some PTSD. She does take the Depo-Provera injection. She reports mild headache no other associated symptoms or complaints at this time. Related Data Home Medications ?Medication ?Instructions ?Recorded ?Confirmed medroxyprogesterone 150 mg/mL 150 mg IM [id number] #1 mL 04/08/23 05/11/24 intramuscular syringe (Depo-Provera) Previous Rx's ?Medication ?Instructions ?Recorded medroxyprogesterone 150 mg/mL 150 mg IM [id number] #1 mL 04/08/23 intramuscular syringe (Depo-Provera) Allergies Allergy/AdvReac Type Severity Reaction Status Date / Time No Known Allergies Allergy Verified 05/11/24 21:53 General Stated Complaint: PsychEval JESUS: 2 Review of Systems All systems reviewed & are unremarkable except as noted in HPI and below Neurologic Neurologic: Reports behavioral changes Psychiatric Psychiatric: Reports as per HPI, Reports behavioral changes, Reports depression and Reports mood swings Exam Narrative Exam Narrative: Constitutional: Alert and oriented x3. Appears stated age. Normal body habitus. Head: Normocephalic, no trauma. Eyes: Pupils PERRL, Red reflex noted, EOM's intact. Eyelids symmetrical without lesions, discharge, or swelling. ENT: Bilateral TM's WNL, External ear normal to inspection, no mastoid TTP, swelling, or erythema, Nasal turbinates WNL, no nasal discharge. Normal dentition, Posterior pharynx WNL, no exudate. Chest: RRR, Normal S1, S2, distal pulses intact. Resp: Lungs clear to auscultation bilaterally, no wheezes, rales, or rhonchi. Abdomen: Soft, non-distended, Normoactive bowel sounds all 4 quads. Musculoskeletal: Normal gait, Moves all 4 extremities without difficulty. Skin: No suspicious rashes or lesions. Capillary refill less than 2 sec. Neurologic: Cranial nerves II-XII intact. Alert and oriented x 3. Motor: No deficits noted. Sensory: Intact bilaterally all 4 extremities. Hematologic/Lymphatic: No ecchymosis, no lymphadenopathy. Course Vital Signs Vital signs: Vital Signs Temperature 36.4 C 05/11/24 21:51 Pulse 87 05/11/24 21:51 Respiratory Rate 18 05/11/24 21:51 Blood Pressure 129/88 05/11/24 21:51 Pulse Oximetry 98 05/11/24 21:51 Temperature 36.4 C 05/11/24 21:51 Temperature Source Temporal Artery Scan 05/11/24 21:51 Pulse 87 05/11/24 21:51 Respiratory Rate 18 05/11/24 21:51 Blood Pressure 129/88 05/11/24 21:51 Blood Pressure Position Sitting 05/11/24 21:51 Pulse Oximetry 98 05/11/24 21:51 Oxygen Delivery Method Room Air 05/11/24 21:51 Oxygen Flow Rate 0 05/11/24 21:51 Pain Level 0 05/11/24 21:51 Medical Decision Making 23-year-old female seen by her mother with a chief complaint of crying uncontrollably over the last week or 2 and depression. She denies any suicidal ideation or homicidal ideation. She has not drink alcohol in the last couple weeks denies any drugs does not appear to be under the influence at this time. No significant psychiatric history. Other than some PTSD. She does take the Depo-Provera injection. She reports mild headache no other associated symptoms or complaints at this time. Will clear with smart medical clearance form, consult with DONNA Villalobos for mental health. 2220: [facility] psych liason on zoom call at this time. Spoke with Mireya with mental health liaison who completed the evaluation and patient is to be safety plan at home with follow-up with PCP to begin on antidepressants. This is appropriate at this time as patient has no thoughts of suicide or homicide. At this time patient is to be discharged into the care of her family. This text was generated using Springation system, please disregard any odd ities of phrase or misspellings. Medical Records Medical records reviewed: Yes I reviewed the patient's medical records. Quality:SDOH Health Related Social Needs: No Data to Display PFSH All Active Problems (Updated 05/11/24 @ 23:11 by Elaine Doyle NP) Depression (Chronic) Bacterial vaginosis (Acute) Genital HSV (Acute) Uses Depo-Provera as primary control method (Acute) Anxiety (Chronic) Gastroesophageal reflux disease (Chronic) Heel pain (Chronic) Insomnia (Chronic) Chronic tonsillitis (Acute) Medical History Dysuria Possible exposure to STD Lesion of labia Contraception, generic surveillance Post-tonsillectomy hemorrhage Abnormal chest xray nodule resolved Recurrent tonsillitis Had eval with ENT- no indication for tonsillectomy at this point (10/27/20) Fracture of distal phalanx of left thumb (01/10/19) BMI 27.0-27.9,adult Premature Born at 34 weeks PTSD (post-traumatic stress disorder) Per pt. 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 Surgical History Hx of tonsillectomy 10/28/2022 Family History Mother Substance abuse Alcohol abuse Half-sibling Substance abuse Social History Smoking/Tobacco Use Status: Never Second Hand Exposure: No Smoking risk assessment performed?: Yes Alcohol Intake: current Alcohol Intake frequency: a few times a month Alcohol type: hard liquor Drug use: Never Substance use type: does not use Household members: family Housing: house Pets and animals: Yes Pets and animals: cat(s) and farm animals Current gender identity: female Seatbelt use: always Helmet use: Yes Helmet use: always Water heater temp set <120 deg: Yes Working smoke detector in home: Yes Fire extinguisher in home: Yes Carbon monox detector in home: Yes Firearms in home: Yes Firearms unloaded and locked: Yes Do you feel safe at home: Yes Do you feel safe in your relationship?: Yes Female Reproductive History Menstrual control method: progesterone injection History History 0 Para Hx # Term Pregnancies Multiple births Hx # Pregnancies Ectopic pregnancies AB induced Hx Number of Living Children AB spontaneous
--- NOTE | 2024-05-11 23:01 | PDOC.MHCN ---
Date of service: 05/11/24 Time of Service: 22:43 Mental Health Emergency Note Release [facility] release signed:: Yes Reason for Visit Kayla presents to [facility] due to her recent emotional distress and several life changes. In the last 2 weeks has the pt presented for ES prior to today?: Unknown Client Information Client is: New Well Housed: Yes Non Suicidal Self Injury Current: No History: No Safety Risk/Harm to Self or Others Current Ideation to Harm Self or Others: No Risk: Does risk to harm exist?: No Risk: N/A Duty to warn indicated: No Asssessment/Mental Status Appearance: Unremarkable Attitude: Cooperative and Passive Behavior: Unremarkable Speech: Normal Affect: Cogruent with mood Mood: Sad and Depressed Thought process: Unremarkable Hallucinations: No evidence Delusions: No evidence Attention: Unremarkable Perception: Not impaired Orientation: Fully orientated Memory: Intact Insight: Fair Judgement: Fair Neurovegetative Symptoms Sleep: Decrease Appetitie: Decrease Interests: Decrease Energy: Decrease Libido: Not applicable Substance Use: Do you use nicotine?: No Have you used substances in the last 7 days?: No Additional Issues: Assaultive/Threatening Behavior: No Medical Concerns: No Client engaged in active self harm w/weapon: No Threatening to run away: No Child reported abuse/neglect: No Voluntarily presenting for services: Yes Domestic violence is a concern: No Extreme Psychosis or extreme behavior is present: No Impression Kayla presents to this headline writer sitting on her hospital bed in street clothes. Kayla and this headline writer began by completing intake and getting verbal permission for treatment. Kayla reports she is doing okay she came into the ED today due to her uncontrollable crying which is causing her to get sick. Kayla reports she does not normally ask for help but she is unsure what to do. Kayla presents today with her mom. Kayla reports she recently got out of a relationship but she also recently bought a house and got a puppy. Kayla reports she is unsure how she is feeling about all of this. Kayla reports her sleep is poor, she has lost 10lbs since and has a severe decrease in appetite. Kayla describes her current mood as tired. Kayla reports she is not interested in anything anymore, things that normally make her happy are not, ,and she reports she has never felt like this before. This headline writer attempted to ask screening tools but Kayla kept stating she was unsure or shed never felt this way. Kayla has a previous resolved history of PTSD but her current symptoms align with a diagnosis of Major depressive disorder. Kayla reports her biological mom struggled with both her mental health and substance usage. Riri, Kayla's mom, reports that there were several traumatic events from Kayla's childhood that Kayla may not even remember that involve her biological family. Kayla reports prior to this no struggles with her MH or substance usage. Kayla reports that her support people are her mom, dad, and friends. Kayla has a PCP but no other supports. Kayla denies a referral to therapy or any services with [facility]. Kayla is open to med management through her PCP. Kayla presents as guarded, often states she is not sure when asked questions, looks to her mom for answers. Kayla is unsure what support may look like right now but is not open to many options. Kayla would benefit from beginning an anti-depressant. Resources Reos[employer]ces reviewed and given:: [phone], Community therapist and [facility] Plan/Disposition Recommended Disposition: PCP/Office visit and Therapy. Plan: Kayla will go home on a safety plan tomas, 05/11. On 05/[address] [facility] and schedule Kayla a follow up appointment with Darlyn Cannon to evaluate Kayla's options of anti-depressants. Kayla does not want a referral to therapy or services with [facility] but is willing to engage with med management at her PCP office. Emily will also follow up with Kayla via phone on 05/12 to check in and see if there is any additional support she needs. Person reported agreement to plan: Yes Reports/communication Outcome discussed with: ED/Personnel
[2024-05-11 23:22] VITALS: BP 116/70; PULSE 79; RESP 16; O2SAT 98
== END 2024-05-11 23:22 | disposition home or self-care (01) ==
PROVIDERS: Emergency Provider Registered Nurse Emergency; PCP Nurse Practitioner Family
DX: F32.A Depression, unspecified (principal)
CPT/HCPCS: 00123; 99285; 99284

== ENCOUNTER 2024-10-29 13:54 | Outpatient (REF) | payer BC, SELFPAY ==
[2024-10-29 15:09] LABS: HCT 46.2 % (36.0-46.0); HGB 15.8 g/dL (11.2-15.7); MCH 29.8 pg (27.0-33.0); MCHC 34.2 % (32.0-36.0); MCV 87 fL (80-95); MPV 10.1 fL (8.0-11.0); Platelet Count 290 10^3/uL (130-400); RBC 5.31 10^6/uL (3.93-5.22); RDW 11.9 % (11.7-14.6); RDW-SD 37.3 fL; WBC 9.45 10^3/uL (4.4-10.8)
[2024-10-29 15:53] LABS: ALT 52 U/L (14-59); AST 25 U/L (15-37); Albumin 4.3 g/dL (3.4-5.0); Alkaline Phosphatase 67 U/L (46-116); Anion Gap 9.4 mmol/L (3-11); BUN 14 mg/dL (7-18); Bilirubin, Total 1.3 mg/dL (0.2-1.0); CO2 27.6 mmol/L (21.0-32.0); Calcium 9.9 mg/dL (8.5-10.1); Chloride 103 mmol/L (98-107); Estimated GFR 106.11 (mL/min/1.73m2); Glucose 91 mg/dL (74-106); Potassium 4.6 mmol/L (3.5-5.1); Sodium 140 mmol/L (136-145); TSH (W/Ref FT4) 1.01 uIU/mL (0.36-3.74); Total Protein 7.2 g/dL (6.4-8.2)
[2024-10-29 15:54] LABS: Hemoglobin A1C 5.3 % (<5.7)
[2024-10-29 23:13] LABS: FSH 6.8 mIU/mL (See Note)
== END 2024-10-29 13:55 | disposition home or self-care (01) ==
LOC: NCHCN 13:54
PROVIDERS: PCP Nurse Practitioner Family; Visit Provider Nurse Practitioner Family
DX: R23.3 Spontaneous ecchymoses (principal); R73.9 Hyperglycemia, unspecified; N91.2 Amenorrhea, unspecified
CPT/HCPCS: 80053; 85027; 82670; 83001; 83036; 84146; 84443

== ENCOUNTER 2025-01-17 15:55 | Outpatient (REF) | payer BC, SELFPAY ==
[2025-01-17 15:22] LABS: Abs Immature Grans 0.09 10^3/uL (0.0-0.06); HCT 40.7 % (36.0-46.0); HGB 14.1 g/dL (11.2-15.7); Immature Grans % 0.8 %; MCH 29.6 pg (27.0-33.0); MCHC 34.6 % (32.0-36.0); MCV 86 fL (80-95); MPV 9.4 fL (8.0-11.0); Platelet Count 305 10^3/uL (130-400); RBC 4.76 10^6/uL (3.93-5.22); RDW 11.4 % (11.7-14.6); RDW-SD 35.7 fL; WBC 11.07 10^3/uL (4.4-10.8)
[2025-01-17 15:48] LABS: ALT 135 U/L (14-59); AST 76 U/L (15-37); Albumin 3.5 g/dL (3.4-5.0); Alkaline Phosphatase 72 U/L (46-116); Anion Gap 9.7 mmol/L (3-11); BUN 8 mg/dL (7-18); Bilirubin, Total 1.3 mg/dL (0.2-1.0); CO2 29.3 mmol/L (21.0-32.0); Calcium 8.8 mg/dL (8.5-10.1); Chloride 97 mmol/L (98-107); Estimated GFR 92.12 (mL/min/1.73m2); Glucose 105 mg/dL (74-106); Potassium 3.6 mmol/L (3.5-5.1); Sodium 136 mmol/L (136-145); Total Protein 7.1 g/dL (6.4-8.2)
[2025-01-18 10:36] LABS: Lyme Ab w Rflx to Lyme Confirm Negative (Negative)
[2025-01-19 20:34] LABS: B. miyamotoi PCR Negative (Negative); Babesia divergens/MO-1 Negative (Negative); Ehrlichia muris eauclairensis Negative (Negative)
== END 2025-01-17 15:56 | disposition home or self-care (01) ==
LOC: NCHCN 15:55
PROVIDERS: PCP Nurse Practitioner Family; Visit Provider Nurse Practitioner Family
DX: R50.9 Fever, unspecified (principal)
CPT/HCPCS: 80053; 87798; 85025; 86618